=== PATIENT | female | born 1970 | race Caucasian/White ===

== ENCOUNTER 2021-12-18 11:15 | Outpatient (CLI) | payer BC, OTHER, SELFPAY | END 2021-12-18 11:16 | disposition home or self-care (01) | LOC: LONREF 12-21 11:08 | PROVIDERS: PCP Family Medicine; Visit Provider Nurse Practitioner Family | DX: R30.0 Dysuria (principal); N89.8 Other specified noninflammatory disorders of vagina | CPT/HCPCS: 87086; 87186 ==

== ENCOUNTER 2022-02-08 00:44 | Emergency (ER) | payer BC, OTHER, SELFPAY ==
[2022-02-08 00:59] VITALS: BP 181/101; PULSE 108; RESP 18; TEMP 36.1; O2SAT 96
[2022-02-08 01:25] VITALS: O2SAT 96
--- NOTE | 2022-02-08 01:46 | ED_ITS ---
HPI - Chest Pain General Chief Complaint: Chest Pain Stated Complaint: Chest Pain Time Seen by Provider: 02/08/22 00:49 Source: patient and family Mode of arrival: ambulatory Limitations: no limitations History of Present Illness HPI narrative: 51-year-old female with no prior cardiac history presents to the emergency department after her Apple watch alerted her that she could possibly be in AFib. 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 She has been throwing frequent PVCs in she had 2 episodes each lasting no more than a couple of minutes but were accompanied by a dull 3/10 achy chest pain did not radiate. She has had a rate around 100-110 during these episodes and does feel a little bit of anxiety that was not be initiating symptom. Her symptoms started after finishing work. She admits that she missed her medications for several days including her antihypertensives and her anticoagulants. Is notable history of factor 5 Leiden disorder. She admits that she often does not take her Eliquis twice daily as she gets increased joint aches when she does so. She has not explored taking prophylactic dosing rather than therapeutic dosing to see if this is more tolerable. Patient has a notable history of a prior pulmonary embolism, had echo in appropriate workup at that time. She states that within the last few months, she has also had a stress test or workup some chest pain. Review of the records shows that this was actually almost 2 years ago but is in fact normal. Recent Holter monitoring. Does have a notable history of AFib in her mother but only when patient was very anemic. There is no family history of early coronary artery disease but there are multiple risk factors in the family as well. Patient also has a history of diabetes, controlled on metformin, obstructive sleep apnea and hypertension, factor 5 Leiden multiple risk factors for coronary artery disease. She is not currently experiencing any chest pain, the achy pain that she did experience was approximately 45 minutes prior to arrival. She did have a slight sensation of lightheadedness upon arrival but she attributes that to her anxiety and has fully resolved. No recent illness, fevers, cough or congestion. She has some chronic swelling in her legs but does wear compression stockings. Denies any specific new swelling, tenderness in her calves. Complains of arthralgias when she is therapeutic on her blood thinners. Past medical history notable for multiple risk factors for coronary artery disease as stated above. Home medications losartan, Eliquis, amlodipine, metformin, omeprazole which is new and Trulicity. Socially she is a nonsmoker, no substance ingestion. Family history with risk factors for heart disease but no premature coronary artery disease as stated above. R was notable for some mild anxiety and the chest symptoms with arrhythmia as stated above, otherwise denies times 12 systems. Related Data Home Medications Medication Instructions Recorded Confirmed apixaban 5 mg tablet (Eliquis) 5 mg PO BID 10/31/21 cholecalciferol (vitamin D3) 1,250 1,250 mcg PO QWEEK 10/31/21 mcg (50,000 unit) capsule dulaglutide 0.75 mg/0.5 mL 0.75 mg subcut QWEEK 10/31/21 subcutaneous pen injector (Trulicity) fluoxetine 20 mg tablet 20 mg PO QDAY 10/31/21 hydrochlorothiazide 12.5 mg tablet 12.5 mg PO QDAY 10/31/21 hydroxyzine HCl 25 mg tablet 25 mg PO .HS PRN 10/31/21 nystatin 100,000 unit/gram topical 1 applic topical TID 10/31/21 powder valsartan 160 mg tablet 160 mg PO QDAY 10/31/21 Previous Rx's Medication Instructions Recorded valsartan 160 mg tablet 160 mg PO QDAY #90 tabs 10/31/21 metformin 500 mg tablet,extended 1,000 mg PO QDAY #180 tabs 11/06/21 release 24hr omeprazole 40 mg capsule,delayed 40 mg PO QDAY #90 caps 12/13/21 release fluconazole 150 mg tablet 150 mg PO Q3D 2 doses #2 tabs 12/18/21 (Diflucan) phenazopyridine 100 mg tablet 100 mg PO TID PRN pain 6 doses #6 12/18/21 (Pyridium) tabs amlodipine 2.5 mg tablet 2.5 mg PO QDAY #90 tabs 01/02/22 Allergies Allergy/AdvReac Type Severity Reaction Status Date / Time hydrocodone Allergy Intermediate Vomiting Verified 10/25/21 12:02 rivaroxaban Allergy Mild Joint Verified 10/25/21 12:02 aches and pain prochlorperazine AdvReac Severe Anger/altered Verified 10/25/21 12:02 mentation hydrochlorothiazide AdvReac Mild Ill feeling Verified 10/25/21 12:02 [facility] Medical History (Updated 02/08/22 @ 02:21 by Erlinda Lehman MD) Epistaxis History of deep venous thrombosis (DVT) of distal vein of left lower extremity History of pulmonary embolism Surgical History (Updated 10/25/21 @ 12:04 by Ana Lopez) History of dilation and curettage History of laser assisted in situ keratomileusis (05/06/12) Family History (Updated 10/25/21 @ 12:04 by Ana Lopez) Other Colon cancer Social History Smoking Status: Never smoker Second hand tobacco smoke exposure: No How often do you have a drink containing alcohol: never How often do you have six or more drinks on one occasion: Never AUDIT-C Alcohol total score: 0 Non-prescribed substance use: denies use Exam Const Vital Signs, click to edit/add: Vital Signs - 24 hr 02/08/22 00:59 02/08/22 01:25 02/08/22 02:00 Temperature 97.0 F L Pulse Rate [Right Pulse Oximeter] 108 H 92 Respiratory Rate 18 18 Blood Pressure [Left Upper Arm] 181/101 H 170/97 H Pulse Oximetry 96 96 96 Oxygen Delivery Method Room Air Room Air Room Air Documenting provider has reviewed patient's vital signs: yes Common normals: no apparent distress General appearance: cooperative and well kempt Other: Good historian, good insight. [facility] Common normals: normocephalic Head and scalp: normocephalic Mouth: oral and palatal mucosa normal Throat: posterior oropharynx normal Eye Common normals: PERRL and conjunctivae normal Conjunctiva: conjunctiva(e) normal Pupil: PERRL Neck & C-Spine Common normals: full ROM and no lymphadenopathy Resp Common normals: normal respiratory effort and clear to auscultation bilaterally Effort & inspection: able to speak in complete sentences Auscultation: clear to auscultation bilaterally Cardio Common normals: regular rate, regular rhythm, S1 normal heart sound, S2 normal heart sound, no murmurs and peripheral pulses 2+ throughout Rate: regular rate Rhythm: regular rhythm Heart sounds: S1 normal and S2 normal Peripheral pulses: pulses 2+ throughout Other: Rate around 100 at my time of auscultation. GI Common normals: Normal to inspection, nondistended, normoactive bowel sounds present, soft to palpation, no hepatosplenomegaly and no masses Palpation: soft and no hepatosplenomegaly Extremity Other: Trace bilateral dependent appearing edema. The left side does have some mild chronic venous stasis changes but no redness, swelling or warmth. Neuro Gait (neuro): normal gait Motor exam: strength 5/5 throughout, no tremor noted and no movement abnormalities noted Psych Appearance: well kempt Attitude: engaged Activity/motor behavior: appropriate eye contact Mood and affect: euthymic mood Insight: insight good Judgement: judgment good Skin Common normals: no rashes or lesions noted General skin exam: no rashes or lesions noted Course Vital Signs Vital signs: Initial Vital Signs Temperature 97.0 F L 02/08/22 00:59 Temperature Source Temporal Artery Scan 02/08/22 00:59 Pulse Rate 108 H 02/08/22 00:59 Pulse Rhythm 02/08/22 00:59 Respiratory Rate 18 02/08/22 00:59 Blood Pressure 181/101 H 02/08/22 00:59 Blood Pressure Mean 127 02/08/22 00:59 Blood Pressure Position Semi-Fowlers 02/08/22 00:59 Pulse Oximetry 96 02/08/22 00:59 Oxygen Delivery Method 02/08/22 00:59 Vital Signs Temperature 97.0 F L 02/08/22 00:59 Pulse Rate 108 H 02/08/22 00:59 Respiratory Rate 18 02/08/22 00:59 Blood Pressure 181/101 H 02/08/22 00:59 Pulse Oximetry 96 02/08/22 00:59 Oxygen Delivery Method 02/08/22 00:59 Temperature 97.0 F L 02/08/22 00:59 Pulse Rate 92 02/08/22 02:00 Respiratory Rate 18 02/08/22 02:00 Blood Pressure 170/97 H 02/08/22 02:00 Pulse Oximetry 96 02/08/22 02:00 Oxygen Delivery Method 02/08/22 02:00 MDM - Chest Pain MDM Narrative Medical decision making narrative: Patient has multiple risk factors for coronary artery disease and has been subtherapeutic on her blood thinners with history of coagulopathy. She is presenting tachycardic with PVCs, concern for underlying coronary disease or pulmonary embolism. Recommend D-dimer, EKG, lab studies to look for underlying causes and troponin. Somewhat reassuring that her pain has resolved. If D- dimer is elevated, I would strongly recommend a CT scan of the chest. Patient will be placed on a phototypesetting equipment monitor. I did confirm that she did go ahead and take her missed doses of her antihypertensives just prior to coming to the hospital, therefore will not dose these. Awaiting results of clot workup studies to determine anticoagulation. 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 A review of the rhythm strips from her phone taken by her watch into see runs of bigeminy with PVCs but I do not detect atrial fibrillation as a.m. consistently seeing P-waves on the rhythm strips. Update: Patient has remained asymptomatic during her 2 hour stay in the emergency department. No return of symptoms, remains in sinus rhythm with rare PVCs. No return of chest pain. Labs reviewed. Normal. Plan of care discussed. Patient is comfortable not doing serial monitoring and additional lab work. Understands need for better compliance with her medications and will follow up with her primary care provider to discuss Holter monitor if she has persistent symptoms. Medical Records Data Attestation: I reviewed the patient's medical records. Lab Data Attestation: I reviewed the patient's lab results. Labs: Lab Results 02/08/22 02/08/22 02/08/22 Range/Units 01:24 01:38 01:38 WBC 10.22 (4.50-11.00) K/uL RBC 5.45 H (4.00-5.20) m/uL Hgb 13.5 (12.0-16.0) gm/dL Hct 43.3 (33.0-51.0) % MCV 79 L (80-100) fL MCH 25 L (26-34) pg MCHC 31 L (32-36) gm/dL RDW Coeff of Katrina 14.6 (11.5-15.5) % Plt Count 302 (140-440) K/uL Neut % (Auto) 62.8 (42.0-72.0) % Lymph % (Auto) 27.8 (20-44) % Worth % (Auto) 5.7 (0.0-11.0) % Eos % (Auto) 2.6 (0.0-7.0) % Baso % (Auto) 0.3 (0.0-3.0) % Neut # (Auto) 6.42 (1.7-7.0) K/uL Lymph # (Auto) 2.84 (0.90-2.90) K/uL Worth # (Auto) 0.60 (0.00-0.90) K/UL Eos # (Auto) 0.27 (0.00-0.50) K/uL Baso # (Auto) 0.03 (0.00-0.30) K/uL Abs Immat Gran (auto) 0.08 (0.00-0.30) K/uL D-Dimer Quant (PE/DVT) 0.56 H (0.00-0.50) ug/ml Sodium (135-149) mmol/L Potassium (3.6-5.1) mmol/L Chloride (96-114) mmol/L Carbon Dioxide (20-32) mmol/L BUN (7-30) mg/dL Creatinine (0.5-1.5) mg/dL Estimated GFR ml/min Glucose (60-115) mg/dL Calcium (8.4-10.6) mg/dL Troponin I (0.01-0.04) ng/mL NT-Pro-B Natriuret Pep (0-125) PG/mL POC Troponin I 0.01 (0.01-0.04) ng/ml 02/08/22 Range/Units 01:38 WBC (4.50-11.00) K/uL RBC (4.00-5.20) m/uL Hgb (12.0-16.0) gm/dL Hct (33.0-51.0) % MCV (80-100) fL MCH (26-34) pg MCHC (32-36) gm/dL RDW Coeff of Katrina (11.5-15.5) % Plt Count (140-440) K/uL Neut % (Auto) (42.0-72.0) % Lymph % (Auto) (20-44) % Worth % (Auto) (0.0-11.0) % Eos % (Auto) (0.0-7.0) % Baso % (Auto) (0.0-3.0) % Neut # (Auto) (1.7-7.0) K/uL Lymph # (Auto) (0.90-2.90) K/uL Worth # (Auto) (0.00-0.90) K/UL Eos # (Auto) (0.00-0.50) K/uL Baso # (Auto) (0.00-0.30) K/uL Abs Immat Gran (auto) (0.00-0.30) K/uL D-Dimer Quant (PE/DVT) (0.00-0.50) ug/ml Sodium 136 (135-149) mmol/L Potassium 4.0 (3.6-5.1) mmol/L Chloride 101 (96-114) mmol/L Carbon Dioxide 26 (20-32) mmol/L BUN 12 (7-30) mg/dL Creatinine 0.8 (0.5-1.5) mg/dL Estimated GFR 90 ml/min Glucose 226 H (60-115) mg/dL Calcium 9.4 (8.4-10.6) mg/dL Troponin I < 0.01 L (0.01-0.04) ng/mL NT-Pro-B Natriuret Pep 83 (0-125) PG/mL POC Troponin I (0.01-0.04) ng/ml ECG Data Attestation: I personally reviewed and interpreted this ECG as follows: Prior ECG tracings: available for review Interpretation: Normal sinus rhythm with a few PVCs. Left atrial enlargement but otherwise normal axis. Normal ST segments, no T-wave inversion, good R-wave progression overall. Discharge Plan Discharge Clinical Impression: Bigeminal rhythm Patient Disposition: Home w/ Parent or Adult Condition: Improved Instructions: Atrial Tachycardia (ED) Additional Instructions: I suspect that your arrhythmia was caused by being off of your medications. Thankfully, there are no signs of blood clot, heart attack or other serious abnormality. That would recommend that you restart your blood thinners and antihypertensives as prescribed. Consider talking to your doctor about whether or not a prophylactic rather than a therapeutic dose of your blood thinners is safe for you. I do not know enough about your testing and risk factors to make this choice for you. Your much less likely to have the microhemorrhages that we discussed in the joints on the lower dose of Xarelto or similar medications. Unfortunately, they are common. For your legs, consider more aggressive compression stockings like the friends that we discussed. I would recommend that you make a followup appointment with her primary care provider to have a Holter monitor placed so that we can look more closely for arrhythmias. It is important that we know if this is happening more often or not. If the rhythm returns and is over 120 and your feeling symptomatic, please come back to the emergency department. The to wear your Apple watch to monitor for these as best you are able. Activity Level: No Restrictions Discharge Diet: Diabetic Prescriptions: No Action phenazopyridine [Pyridium] 100 mg tablet 100 mg PO TID PRN (Reason: pain) Qty: 6 0RF fluconazole [Diflucan] 150 mg tablet 150 mg PO Q3D Qty: 2 0RF hydroxyzine HCl 25 mg tablet 25 mg PO .HS PRN valsartan 160 mg tablet 160 mg PO QDAY Trulicity 0.75 mg/0.5 mL pen injector 0.75 mg subcut QWEEK hydrochlorothiazide 12.5 mg tablet 12.5 mg PO QDAY nystatin 100,000 unit/gram powder 1 applic topical TID fluoxetine 20 mg tablet 20 mg PO QDAY Eliquis 5 mg tablet 5 mg PO BID cholecalciferol (vitamin D3) 1,250 mcg (50,000 unit) capsule 1,250 mcg PO QWEEK valsartan 160 mg tablet 160 mg PO QDAY Qty: 90 3RF metformin 500 mg tablet extended release 24hr 1,000 mg PO QDAY Qty: 180 3RF omeprazole 40 mg capsule,delayed release(DR/EC) 40 mg PO QDAY Qty: 90 1RF amlodipine 2.5 mg tablet 2.5 mg PO QDAY Qty: 90 3RF Follow Up/Referrals: Shaun Barrett MD [Primary Care Provider] - Stand Alone Forms: [employer] Info Instructions
[2022-02-08 01:47] LABS: Basophils Absolute Auto 0.03 K/uL (0.00-0.30); Basophils Percent Auto 0.3 % (0.0-3.0); Eosinophils Absolute Auto 0.27 K/uL (0.00-0.50); Eosinophils Percent Auto 2.6 % (0.0-7.0); Hematocrit 43.3 % (33.0-51.0); Hemoglobin* 13.5 gm/dL (12.0-16.0); Immature Granulocytes Abs Auto 0.08 K/uL (0.00-0.30); Lymphocytes Absolute Auto 2.84 K/uL (0.90-2.90); Lymphocytes Percent Auto 27.8 % (20-44); Mean Corpuscular HGB Conc 31 gm/dL (32-36); Mean Corpuscular Hemoglobin 25 pg (26-34); Mean Corpuscular Volume 79 fL (80-100); Monocytes Percent Auto 5.7 % (0.0-11.0); Neutrophils Absolute Auto 6.42 K/uL (1.7-7.0); Neutrophils Percent Auto 62.8 % (42.0-72.0); Platelet Count* 302 K/uL (140-440); RDW Coefficient of Variation % 14.6 % (11.5-15.5); Red Blood Count 5.45 m/uL (4.00-5.20); White Blood Count* 10.22 K/uL (4.50-11.00)
[2022-02-08 01:52] LABS: Slide Review Reflex No
[2022-02-08 02:00] VITALS: BP 170/97; PULSE 92; RESP 18; O2SAT 96
[2022-02-08 02:00] LABS: Chloride* 101 mmol/L (96-114); Sodium* 136 mmol/L (135-149)
[2022-02-08 02:02] LABS: Troponin, Point-of-Care* 0.01 ng/ml (0.01-0.04)
[2022-02-08 02:04] LABS: Blood Urea Nitrogen* 12 mg/dL (7-30); Calcium* 9.4 mg/dL (8.4-10.6); Carbon Dioxide* 26 mmol/L (20-32); Creatinine* 0.8 mg/dL (0.5-1.5); Estimated Glomerular Filt Rate 90 ml/min; Glucose* 226 mg/dL (60-115)
[2022-02-08 02:05] LABS: D Dimer Quantitative* 0.56 ug/ml (0.00-0.50)
--- OUTSIDE RECORDS SUMMARY | 2022-02-08 02:06 | XMS_ITS | Clinical Summary ---
:1970 Author Organization [employer] [facility] [place] [address] Care Team Providers Name Role Phone Shaun Barrett MD Primary Care Provider Allergies No known active allergies Medications Medication Sig Dispensed Refills Start Date End Date Status levonorgestrel Inject 1 Device 0 Active intrauterine device intrauterine one (MIRENA) 20 mcg/24 hour time. (5 years) IUD losartan (COZAAR) 50 mg Take 1 tablet by 0 6 Active tablet mouth once daily. cyanocobalamin (VITAMIN Take 1 tablet by 0 6 Active B-12) 1,000 mcg tablet mouth once daily. sertraline (ZOLOFT) 25 Take 1 tablet by 0 05/29/2016 Active mg tablet mouth once daily. amLODIPine (NORVASC) 2.5 0 08/13/2021 Active mg tablet Eliquis 5 mg tablet 0 04/02/2021 Active FLUoxetine 20 mg tablet Take 20 mg by 0 06/12/2021 Active mouth once daily. hydroCHLOROthiazide 12.5 0 08/16/2021 Active mg capsule metFORMIN (GLUCOPHAGE Take 1,000 mg by 0 01/01/2021 Active XR) 500 mg mouth once daily. Extended-Release tablet omeprazole (PRILOSEC) 40 Take 40 mg by 0 06/12/2021 Active mg Delayed-Release mouth once daily. 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 06/25/2007 Congenital insufficiency of aortic valve 03/26/2007 Overview: Bicuspid Aortic Valve Recheck Echo 9 Other pulmonary embolism and infarction 03/16/2007 Lumbago 03/13/2007 Dysthymic disorder 03/10/2007 Overview: Depression Immunizations Name Administration Dates Next Due Pneumococcal Poly,23-Valent (Pneumovax) 02/13/2008 Family History Medical History Relation Name Comments Diabetes Father Hypertension Father Cancer Mother uterine Cancer-breast Mother may have had gaby ast but unsure where CA started do to al so having uterin Hypertension Mother Cancer-colon No Family History Cancer-ovarian No Family History Cancer-prostate No Family History Relation Name Status Comments Father Mother Social History Tobacco Use Types Packs/Day Years Used Date Former Smoker 0 Smokeless Tobacco: Former User Alcohol Use Standard Drinks/Week Comments No 1.7 (1 standard drink = 0.6 oz pure alco hol) Sex Assigned at Date Recorded Not on file Obstetrics History Last Filed Vital Signs Vital Sign Reading Time Taken Comments Blood Pressure 149/75 08/18/2021 9:36 PM CDT Pulse 85 08/18/2021 9:36 PM CDT Temperature 36.8 ??C (98.2 ??F) 08/18/2021 7:32 PM CDT Respiratory Rate 20 08/18/2021 7:32 PM CDT Oxygen Saturation 97% 08/18/2021 9:36 PM CDT Inhaled Oxygen Concentration - - Weight 183.7 kg (405 lb) 08/18/2021 7:32 PM CDT Height 177.8 cm (5' 10) 08/18/2021 7:32 PM CDT Body Mass Index 58.11 08/18/2021 7:32 PM CDT Plan of Treatment Health Maintenance Due Date Last Done Comments Tdap 12/24/1982 Depression screening for age 12+ 1983 BMI (ht and wt on same day) for age 0912/24/1989 18+ Hepatitis C screening for age 18-79 12/24/1989 Tetanus booster 1991 Pap test for age 21-65 05/17/2014 05/17/2011, 05/17/2011, 09/21/2004 Colonoscopy through age 75 12/24/2016 Lipids for age 45-75 12/24/2016 09/21/2008, 03/26/2007 Mammogram for age 45-75 12/24/2016 06/15/2013 COVID-19 vaccine series (3 - Booster 08/15/2020 06/20/2020, 05/27/2020 for Pfizer series) Influenza for age 50-64 12/24/2021 Zoster (shingles) series for age 50+ 12/24/2021 (1 of 2) Results Not on filefrom Last 3 Months Insurance Payer Benefit Plan / Subscriber ID Effective Dates Phone Addre ss Type Group PREFERRED ONE PREFERRED ONE [id number] 2015-Prese [address] [place] [address] [employer] BL[employer] OF [id number] 2019-Prese [address] [place] [address] BLUE [employer]OSS BLUE [employer]OSS OF [id number] 2020-Prese [address] [place] [address] [facility] UMR [id number] 2019-Presen [address] [place] [address] Sera Walker Personal/Family Self 1970 [id number] [facility] [address] [place] [address] Advance Directives Latest Code Status on File Code Status Date Activated Date Inactivated Comments Full Code 09/19/2008 8:15 PM 09/21/2008 7:41 PM 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
[2022-02-08 02:12] LABS: NT Pro B Type NatriureticPept* 83 PG/mL (0-125)
[2022-02-08 02:16] LABS: Troponin I* < 0.01 ng/mL (0.01-0.04)
== END 2022-02-08 02:51 | disposition home or self-care (01) ==
PROVIDERS: Emergency Provider Family Medicine; PCP Family Medicine
DX: R00.8 Other abnormalities of heart beat (principal)
CPT/HCPCS: 36415; 80048; 83880; 84484; 85025; 85379; 93005; 99282; 99284

== ENCOUNTER 2022-02-09 06:48 | Emergency (ER) | payer BC, OTHER, SELFPAY ==
[2022-02-09 07:01] VITALS: BP 162/84; PULSE 86; RESP 16; O2SAT 96; BMI 54.5
--- NOTE | 2022-02-09 08:12 | ED_ITS ---
HPI - Arrhythmia/Palpitations General Date Seen: 02/09/22 <Lambert Gandhi MD - Last Filed: 02/10/22 08:22> Chief Complaint: Arrhythmia/Palpitations <Lambert Gandhi MD - Last Filed: 02/10/22 08:22> Stated Complaint: Irregular heart beat and dizzy <Lambert Gandhi MD - Last Filed: 02/10/22 08:22> Time Seen by Provider: 02/09/22 06:55 <Lambert Gandhi MD - Last Filed: 02/10/22 08:22> Source: patient <Lambert Gandhi MD - Last Filed: 02/10/22 08:22> Mode of arrival: ambulatory <Lambert Gandhi MD - Last Filed: 02/10/22 08:22> Limitations: no limitations <Lambert Gandhi MD - Last Filed: 02/10/22 08:22> History of Present Illness HPI narrative: 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 this morning of almost passing out, incontinence of urine, and feeling her heart flipping beats. She was seen the night before here, thought to be possibly in atrial fibrillation but was clearly in bigeminy at times. She also has some mild left-sided chest discomfort which she is not sure whether is related to this at all, as this was from before. She is here with her significant other, who reminds her the chest pain at least could be just her anxiety and her hypochondria. Sera does have a history of factor 5 Leiden previous DVT she takes Eliquis although she does not take it regularly, missing doses often. She also has a history of hypertension, if struggled with getting her medications under control. No shortness of breath, no fevers or chills, she is not taking cold medicines and she has not drank alcohol in the last 72 hours. There is a history in the past of atrial fibrillation <Lambert Gandhi MD - Last Filed: 02/10/22 08:22> MD complaint: skipped beats and palpitations <Lambert Gandhi MD - Last Filed: 02/10/22 08:22> Context: occurred during rest <Lambert Gandhi MD - Last Filed: 02/10/22 08:22> Arrhythmia history: atrial fibrillation and on anti-coagulants <Lambert Gandhi MD - Last Filed: 02/10/22 08:22> Related Data Home Medications: Home Medications Medication Instructions Recorded Confirmed apixaban 5 mg tablet (Eliquis) 5 mg PO BID 10/31/21 02/09/22 cholecalciferol (vitamin D3) 1,250 1,250 mcg PO QWEEK 10/31/21 mcg (50,000 unit) capsule dulaglutide 0.75 mg/0.5 mL 0.75 mg subcut QWEEK 10/31/21 02/09/22 subcutaneous pen injector (Trulicity) fluoxetine 20 mg tablet 20 mg PO QDAY 10/31/21 02/09/22 hydrochlorothiazide 12.5 mg tablet 12.5 mg PO QDAY 10/31/21 hydroxyzine HCl 25 mg tablet 25 mg PO .HS PRN 10/31/21 nystatin 100,000 unit/gram topical 1 applic topical TID 10/31/21 powder valsartan 160 mg tablet 160 mg PO QDAY 10/31/21 02/09/22 Previous Rx's Medication Instructions Recorded valsartan 160 mg tablet 160 mg PO QDAY #90 tabs 10/31/21 metformin 500 mg tablet,extended 1,000 mg PO QDAY #180 tabs 11/06/21 release 24hr omeprazole 40 mg capsule,delayed 40 mg PO QDAY #90 caps 12/13/21 release fluconazole 150 mg tablet 150 mg PO Q3D 2 doses #2 tabs 12/18/21 (Diflucan) phenazopyridine 100 mg tablet 100 mg PO TID PRN pain 6 doses #6 12/18/21 (Pyridium) tabs amlodipine 2.5 mg tablet 2.5 mg PO QDAY #90 tabs 01/02/22 <Lambert Gandhi MD - Last Filed: 02/10/22 08:22> Allergies/Adverse Reactions: Allergies Allergy/AdvReac Type Severity Reaction Status Date / Time hydrocodone Allergy Intermediate Vomiting Verified 10/25/21 12:02 rivaroxaban Allergy Mild Joint Verified 10/25/21 12:02 aches and pain prochlorperazine AdvReac Severe Anger/altered Verified 10/25/21 12:02 mentation hydrochlorothiazide AdvReac Mild Ill feeling Verified 10/25/21 12:02 <Lambert Gandhi MD - Last Filed: 02/10/22 08:22> Review of Systems Status of ROS: Reports: 10 or more systems reviewed and unremarkable except as noted in History and below <Lambert Gandhi MD - Last Filed: 02/10/22 08:22> [facility] Medical History: Medical History Epistaxis History of deep venous thrombosis (DVT) of distal vein of left lower extremity History of pulmonary embolism <Lambert Gandhi MD - Last Filed: 02/10/22 08:22> Surgical History: Surgical History History of dilation and curettage History of laser assisted in situ keratomileusis (05/06/12) <Lambert Gandhi MD - Last Filed: 02/10/22 08:22> Family History: Family History Other Colon cancer <Lambert Gandhi MD - Last Filed: 02/10/22 08:22> Social History: Social History Smoking Status: Never smoker Second hand tobacco smoke exposure: No How often do you have a drink containing alcohol: never How often do you have six or more drinks on one occasion: Never AUDIT-C Alcohol total score: 0 Non-prescribed substance use: denies use <Lambert Gandhi MD - Last Filed: 02/10/22 08:22> Exam Narrative: Exam Narrative: Patient is seen in room 8, she is in no apparent distress, conversing normally with me, BMI is elevated, pupils are equal round reactive to light there is no scleral icterus or redness, TMs bilaterally are normal, oropharynx normal, I am unable to see her JVP do the size of her neck, her chest is clear bilaterally with no wheezing crackles noted her heart sounds are normal, abdomen is soft and obese, no tenderness to palpation, her legs have edema bilaterally but otherwise normal. <Lambert Gandhi MD - Last Filed: 02/10/22 08:22> Const: Vital Signs, click to edit/add: Vital Signs - 24 hr 02/09/22 08:48 02/09/22 11:45 Pulse Rate [Left P ulse Oximeter] 76 84 Respiratory Rate 16 18 Blood Pressure [Le ft Upper Arm] 153/92 H 152/87 H Pulse Oximetry 96 96 Oxygen Delivery Me thod Room Air Room Air <Lambert Gandhi MD - Last Filed: 02/10/22 08:22> Vital Signs, click to edit/add: Vital Signs - 24 hr 02/09/22 08:48 02/09/22 11:45 Pulse Rate [Left P ulse Oximeter] 76 84 Respiratory Rate 16 18 Blood Pressure [Le ft Upper Arm] 153/92 H 152/87 H Pulse Oximetry 96 96 Oxygen Delivery Me thod Room Air Room Air <Shaun Coelho MD - Last Filed: 02/09/22 11:11> Documenting provider has reviewed patient's vital signs: yes <Lambert Gandhi MD - Last Filed: 02/10/22 08:22> Course Course Hospital Course: Patient appears to be in no apparent distress currently, I think it would be reasonable at this point, 2 repeat her troponin, D-dimer, and go forward, she may require a Holter monitor, oncoming emergency physician will review the labs, and course. <Lambert Gandhi MD - Last Filed: 02/10/22 08:22> Vital Signs Vital signs: Initial Vital Signs Temperature Source Temporal Artery Scan 02/09/22 07:01 Pulse Rate 86 02/09/22 07:01 Respiratory Rate 16 02/09/22 07:01 Blood Pressure 162/84 H 02/09/22 07:01 Blood Pressure Mean 110 02/09/22 07:01 Blood Pressure Position Sitting 02/09/22 07:01 Pulse Oximetry 96 02/09/22 07:01 Oxygen Delivery Method 02/09/22 07:01 Vital Signs Pulse Rate 86 02/09/22 07:01 Respiratory Rate 16 02/09/22 07:01 Blood Pressure 162/84 H 02/09/22 07:01 Pulse Oximetry 96 02/09/22 07:01 Oxygen Delivery Method 02/09/22 07:01 Pulse Rate 84 02/09/22 11:45 Respiratory Rate 18 02/09/22 11:45 Blood Pressure 152/87 H 02/09/22 11:45 Pulse Oximetry 96 02/09/22 11:45 Oxygen Delivery Method 02/09/22 11:45 <Lambert Gandhi MD - Last Filed: 02/10/22 08:22> Initial Vital Signs Temperature Source Temporal Artery Scan 02/09/22 07:01 Pulse Rate 86 02/09/22 07:01 Respiratory Rate 16 02/09/22 07:01 Blood Pressure 162/84 H 02/09/22 07:01 Blood Pressure Mean 110 02/09/22 07:01 Blood Pressure Position Sitting 02/09/22 07:01 Pulse Oximetry 96 02/09/22 07:01 Oxygen Delivery Method 02/09/22 07:01 Vital Signs Pulse Rate 86 02/09/22 07:01 Respiratory Rate 16 02/09/22 07:01 Blood Pressure 162/84 H 02/09/22 07:01 Pulse Oximetry 96 02/09/22 07:01 Oxygen Delivery Method 02/09/22 07:01 Pulse Rate 84 02/09/22 11:45 Respiratory Rate 18 02/09/22 11:45 Blood Pressure 152/87 H 02/09/22 11:45 Pulse Oximetry 96 02/09/22 11:45 Oxygen Delivery Method 02/09/22 11:45 <Shaun Coelho MD - Last Filed: 02/09/22 11:11> MDM - Arrhythmia/Palpitations MDM Narrative Medical decision making narrative: Differential diagnosis includes but is not limited to psychosocial stress, thyroid abnormalities, CHF, SVT, atrial fibrillation, ventricular tachycardia and ventricular fibrillation. This includes the life-threatening complications of heart failure, V-tach, and VFib <Lambert Gandhi MD - Last Filed: 02/10/22 08:22> Differential diagnosis includes but is not limited to psychosocial stress, thyroid abnormalities, CHF, SVT, atrial fibrillation, ventricular tachycardia and ventricular fibrillation. This includes the life-threatening complications of heart failure, V-tach, and VFib Lab and imaging results for this patient returned with reassuring findings. She does have frequent PACs on heart monitoring. She is okay to return home and has a follow-up appointment with her primary physician in a few days. A Holter monitor is ordered to be worn for 48 hours. <Shaun Coelho MD - Last Filed: 02/09/22 11:11> Medical Records Attestation: I reviewed the patient's medical records. <Lambert Gandhi MD - Last Filed: 02/10/22 08:22> Lab Data Attestation: I reviewed the patient's lab results. <Lambert Gandhi MD - Last Filed: 02/10/22 08:22> Labs: Lab Results 02/09/22 02/09/22 02/09/22 Range/Units 09:30 09:30 09:30 WBC 7.95 (4.50-11.00) K/uL RBC 5.42 H (4.00-5.20) m/uL Hgb 13.2 (12.0-16.0) gm/dL Hct 43.6 (33.0-51.0) % MCV 80 (80-100) fL MCH 24 L (26-34) pg MCHC 30 L (32-36) gm/dL RDW Coeff of Katrina 14.7 (11.5-15.5) % Plt Count 296 (140-440) K/uL Neut % (Auto) 62.3 (42.0-72.0) % Lymph % (Auto) 27.5 (20-44) % [place] % (Auto) 6.2 (0.0-11.0) % Eos % (Auto) 3.1 (0.0-7.0) % Baso % (Auto) 0.4 (0.0-3.0) % Neut # (Auto) 4.95 (1.7-7.0) K/uL Lymph # (Auto) 2.19 (0.90-2.90) K/uL [place] # (Auto) 0.50 (0.00-0.90) K/UL Eos # (Auto) 0.25 (0.00-0.50) K/uL Baso # (Auto) 0.03 (0.00-0.30) K/uL Abs Immat Gran (auto) 0.04 (0.00-0.30) K/uL D-Dimer Quant (PE/DVT) 0.44 (0.00-0.50) ug/ml Sodium 138 (135-149) mmol/L Potassium 4.5 (3.6-5.1) mmol/L Chloride 102 (96-114) mmol/L Carbon Dioxide 27 (20-32) mmol/L BUN 14 (7-30) mg/dL Creatinine 0.6 (0.5-1.5) mg/dL Estimated Creat Clear 121.30 Estimated GFR 109 ml/min Glucose 152 H (60-115) mg/dL Calcium 9.1 (8.4-10.6) mg/dL NT-Pro-B Natriuret Pep (0-125) PG/mL TSH (0.270-4.20) uIU/mL POC Troponin I (0.01-0.04) ng/ml 02/09/22 02/09/22 02/09/22 Range/Units 09:30 09:30 09:30 WBC (4.50-11.00) K/uL RBC (4.00-5.20) m/uL Hgb (12.0-16.0) gm/dL Hct (33.0-51.0) % MCV (80-100) fL MCH (26-34) pg MCHC (32-36) gm/dL RDW Coeff of Katrina (11.5-15.5) % Plt Count (140-440) K/uL Neut % (Auto) (42.0-72.0) % Lymph % (Auto) (20-44) % [place] % (Auto) (0.0-11.0) % Eos % (Auto) (0.0-7.0) % Baso % (Auto) (0.0-3.0) % Neut # (Auto) (1.7-7.0) K/uL Lymph # (Auto) (0.90-2.90) K/uL [place] # (Auto) (0.00-0.90) K/UL Eos # (Auto) (0.00-0.50) K/uL Baso # (Auto) (0.00-0.30) K/uL Abs Immat Gran (auto) (0.00-0.30) K/uL D-Dimer Quant (PE/DVT) (0.00-0.50) ug/ml Sodium (135-149) mmol/L Potassium (3.6-5.1) mmol/L Chloride (96-114) mmol/L Carbon Dioxide (20-32) mmol/L BUN (7-30) mg/dL Creatinine (0.5-1.5) mg/dL Estimated Creat Clear Estimated GFR ml/min Glucose (60-115) mg/dL Calcium (8.4-10.6) mg/dL NT-Pro-B Natriuret Pep 80 (0-125) PG/mL TSH 2.660 (0.270-4.20) uIU/mL POC Troponin I 0.01 (0.01-0.04) ng/ml <Lambert Gandhi MD - Last Filed: 02/10/22 08:22> Lab Results 02/09/22 02/09/22 02/09/22 Range/Units 09:30 09:30 09:30 WBC 7.95 (4.50-11.00) K/uL RBC 5.42 H (4.00-5.20) m/uL Hgb 13.2 (12.0-16.0) gm/dL Hct 43.6 (33.0-51.0) % MCV 80 (80-100) fL MCH 24 L (26-34) pg MCHC 30 L (32-36) gm/dL RDW Coeff of Katrina 14.7 (11.5-15.5) % Plt Count 296 (140-440) K/uL Neut % (Auto) 62.3 (42.0-72.0) % Lymph % (Auto) 27.5 (20-44) % [place] % (Auto) 6.2 (0.0-11.0) % Eos % (Auto) 3.1 (0.0-7.0) % Baso % (Auto) 0.4 (0.0-3.0) % Neut # (Auto) 4.95 (1.7-7.0) K/uL Lymph # (Auto) 2.19 (0.90-2.90) K/uL [place] # (Auto) 0.50 (0.00-0.90) K/UL Eos # (Auto) 0.25 (0.00-0.50) K/uL Baso # (Auto) 0.03 (0.00-0.30) K/uL Abs Immat Gran (auto) 0.04 (0.00-0.30) K/uL D-Dimer Quant (PE/DVT) 0.44 (0.00-0.50) ug/ml Sodium 138 (135-149) mmol/L Potassium 4.5 (3.6-5.1) mmol/L Chloride 102 (96-114) mmol/L Carbon Dioxide 27 (20-32) mmol/L BUN 14 (7-30) mg/dL Creatinine 0.6 (0.5-1.5) mg/dL Estimated Creat Clear 121.30 Estimated GFR 109 ml/min Glucose 152 H (60-115) mg/dL Calcium 9.1 (8.4-10.6) mg/dL NT-Pro-B Natriuret Pep (0-125) PG/mL TSH (0.270-4.20) uIU/mL POC Troponin I (0.01-0.04) ng/ml 02/09/22 02/09/22 02/09/22 Range/Units 09:30 09:30 09:30 WBC (4.50-11.00) K/uL RBC (4.00-5.20) m/uL Hgb (12.0-16.0) gm/dL Hct (33.0-51.0) % MCV (80-100) fL MCH (26-34) pg MCHC (32-36) gm/dL RDW Coeff of Katrina (11.5-15.5) % Plt Count (140-440) K/uL Neut % (Auto) (42.0-72.0) % Lymph % (Auto) (20-44) % [place] % (Auto) (0.0-11.0) % Eos % (Auto) (0.0-7.0) % Baso % (Auto) (0.0-3.0) % Neut # (Auto) (1.7-7.0) K/uL Lymph # (Auto) (0.90-2.90) K/uL [place] # (Auto) (0.00-0.90) K/UL Eos # (Auto) (0.00-0.50) K/uL Baso # (Auto) (0.00-0.30) K/uL Abs Immat Gran (auto) (0.00-0.30) K/uL D-Dimer Quant (PE/DVT) (0.00-0.50) ug/ml Sodium (135-149) mmol/L Potassium (3.6-5.1) mmol/L Chloride (96-114) mmol/L Carbon Dioxide (20-32) mmol/L BUN (7-30) mg/dL Creatinine (0.5-1.5) mg/dL Estimated Creat Clear Estimated GFR ml/min Glucose (60-115) mg/dL Calcium (8.4-10.6) mg/dL NT-Pro-B Natriuret Pep 80 (0-125) PG/mL TSH 2.660 (0.270-4.20) uIU/mL POC Troponin I 0.01 (0.01-0.04) ng/ml <Shaun Coelho MD - Last Filed: 02/09/22 11:11> Imaging Data Chest x-ray: Radiologist's impression: Possible low-grade CHF without overt edema. Exam otherwise unremarkable. <Shaun Coelho MD - Last Filed: 02/09/22 11:11> ECG Data Attestation: I personally reviewed and interpreted this ECG as follows: <Lambert Gandhi MD - Last Filed: 02/10/22 08:22> ECG interpretation date: 02/09/22 <Lambert Gandhi MD - Last Filed: 02/10/22 08:22> ECG interpretation time: 08:37 <Lambert Gandhi MD - Last Filed: 02/10/22 08:22> Interpretation: EKG shows normal sinus rhythm, with occasional PVCs, ventricular rate is 87, QRS QT and AL intervals are normal. Assessment: Normal EKG with no ST waves does changes, occasional PVCs, <Lambert Gandhi MD - Last Filed: 02/10/22 08:22> Discharge Plan Discharge Clinical Impression: Palpitations, Frequent PVCs <Lambert Gandhi MD - Last Filed: 02/10/22 08:22> Patient Disposition: Home, Self-Care <Lambert Gandhi MD - Last Filed: 02/10/22 08:22> Condition: Stable <Lambert Gandhi MD - Last Filed: 02/10/22 08:22> Instructions: Heart Palpitations (ED) <Lambert Gandhi MD - Last Filed: 02/10/22 08:22> Additional Instructions: Follow-up with primary physician as scheduled. Wear Holter monitor. Return if recurrent or worsening symptoms happen. <Lambert Gandhi MD - Last Filed: 02/10/22 08:22> Prescriptions: No Action phenazopyridine [Pyridium] 100 mg tablet 100 mg PO TID PRN (Reason: pain) Qty: 6 0RF fluconazole [Diflucan] 150 mg tablet 150 mg PO Q3D Qty: 2 0RF hydroxyzine HCl 25 mg tablet 25 mg PO .HS PRN valsartan 160 mg tablet 160 mg PO QDAY Trulicity 0.75 mg/0.5 mL pen injector 0.75 mg subcut QWEEK hydrochlorothiazide 12.5 mg tablet 12.5 mg PO QDAY nystatin 100,000 unit/gram powder 1 applic topical TID fluoxetine 20 mg tablet 20 mg PO QDAY Eliquis 5 mg tablet 5 mg PO BID cholecalciferol (vitamin D3) 1,250 mcg (50,000 unit) capsule 1,250 mcg PO QWEEK valsartan 160 mg tablet 160 mg PO QDAY Qty: 90 3RF metformin 500 mg tablet extended release 24hr 1,000 mg PO QDAY Qty: 180 3RF omeprazole 40 mg capsule,delayed release(DR/EC) 40 mg PO QDAY Qty: 90 1RF amlodipine 2.5 mg tablet 2.5 mg PO QDAY Qty: 90 3RF <Lambert Gandhi MD - Last Filed: 02/10/22 08:22> Follow Up/Referrals: Shaun Barrett MD [Primary Care Provider] - <Lambert Gandhi MD - Last Filed: 02/10/22 08:22> Stand Alone Forms: MyHealth Info Instructions <Lambert Gandhi MD - Last Filed: 02/10/22 08:22>
--- NOTE | 2022-02-09 08:25 | CRLHL7_ITS ---
For Patients: As a result of the Century Cures Act, medical imaging exams and procedure reports are released immediately into your electronic medical record. You may view this report before your referring provider. If you have questions, please contact your health care provider. INDICATION: Chest pain. TECHNIQUE: Chest 2 views. COMPARISON: CT chest September 22, 2020. FINDINGS: Cardiovascular and mediastinum: Moderate cardiomegaly and mild central pulmonary vascular congestion. Lungs and pleural spaces: Lungs are clear. No sign of infiltrate or mass. No sign of pleural effusion. No pneumothorax. Bones and soft tissues: No significant findings. IMPRESSION: Possible low-grade CHF without overt edema. Exam otherwise unremarkable. Dictated by Matty Pate MD @ 02/09/2022 9:26:22 AM (Electronically Signed)
[2022-02-09 08:48] VITALS: BP 153/92; PULSE 76; RESP 16; O2SAT 96
--- OUTSIDE RECORDS SUMMARY | 2022-02-09 09:03 | XMS_ITS | Clinical Summary ---
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 06/25/2007 Congenital insufficiency [...] ss Type Group PREFERRED ONE PREFERRED ONE [id number] 2015-Prese [address] [place] [address] [employer] BL[employer] OF [id number] 2019-Prese [id number] [place] [address] [employer] BL[employer] OF [id number] 2020-Prese [address] [place] [address] [facility] [id number] 2019-Presen [address] [place] [address] Sera Walker Personal/Family Self 1970 [id number] [address] [place] [address] Advance Directives Latest Code Status on File Code Status Date Activated Date Inactivated Comments Full Code 09/19/2008 8:15 PM 09/21/2008 7:41 PM Care Teams Decision Support Analyst Relationship Specialty Start Date End Date Shaun Barrett MD PCP - General Family Practice 08/18/[address] [place] [id number]
[2022-02-09 09:46] LABS: Basophils Absolute Auto 0.03 K/uL (0.00-0.30); Basophils Percent Auto 0.4 % (0.0-3.0); Eosinophils Absolute Auto 0.25 K/uL (0.00-0.50); Eosinophils Percent Auto 3.1 % (0.0-7.0); Hematocrit 43.6 % (33.0-51.0); Hemoglobin* 13.2 gm/dL (12.0-16.0); Immature Granulocytes Abs Auto 0.04 K/uL (0.00-0.30); Lymphocytes Absolute Auto 2.19 K/uL (0.90-2.90); Lymphocytes Percent Auto 27.5 % (20-44); Mean Corpuscular HGB Conc 30 gm/dL (32-36); Mean Corpuscular Hemoglobin 24 pg (26-34); Mean Corpuscular Volume 80 fL (80-100); Monocytes Percent Auto 6.2 % (0.0-11.0); Neutrophils Absolute Auto 4.95 K/uL (1.7-7.0); Neutrophils Percent Auto 62.3 % (42.0-72.0); Platelet Count* 296 K/uL (140-440); RDW Coefficient of Variation % 14.7 % (11.5-15.5); Red Blood Count 5.42 m/uL (4.00-5.20); White Blood Count* 7.95 K/uL (4.50-11.00)
[2022-02-09 09:48] LABS: Slide Review Reflex No
[2022-02-09 09:50] LABS: Troponin, Point-of-Care* 0.01 ng/ml (0.01-0.04)
--- NOTE | 2022-02-09 09:59 | ED.NURSE ---
patient will feel the PVCs occasionally and had a bout of CP in the left side of the chest briefly, but resolves quickly.
[2022-02-09 10:00] LABS: Chloride* 102 mmol/L (96-114); Potassium* 4.5 mmol/L (3.6-5.1); Sodium* 138 mmol/L (135-149)
[2022-02-09 10:03] LABS: Blood Urea Nitrogen* 14 mg/dL (7-30); Carbon Dioxide* 27 mmol/L (20-32); Creatinine* 0.6 mg/dL (0.5-1.5); Estimated Glomerular Filt Rate 109 ml/min; Glucose* 152 mg/dL (60-115)
[2022-02-09 10:04] LABS: Calcium* 9.1 mg/dL (8.4-10.6); D Dimer Quantitative* 0.44 ug/ml (0.00-0.50)
[2022-02-09 10:13] LABS: NT Pro B Type NatriureticPept* 80 PG/mL (0-125)
--- NOTE | 2022-02-09 11:28 | ED.NURSE ---
imaging placed a Holter monitor on. patient is feeling better and eager to go home.
[2022-02-09 11:45] VITALS: BP 152/87; PULSE 84; RESP 18; O2SAT 96
== END 2022-02-09 11:55 | disposition home or self-care (01) ==
PROVIDERS: Emergency Provider Family Medicine; PCP Family Medicine
DX: R00.8 Other abnormalities of heart beat (principal)
CPT/HCPCS: 36415; 71046; 80048; 83880; 84443; 85025; 85379; 93005; 93225; 93226; 99285

== ENCOUNTER 2022-11-24 16:42 | Emergency (ER) | payer BC, OTHER, SELFPAY ==
[2022-11-24 16:45] VITALS: BP 159/105; PULSE 95; RESP 20; TEMP 36.2; O2SAT 97; BMI 57.4
--- NOTE | 2022-11-24 17:02 | CRLHL7_ITS ---
For Patients: As a result of the Century Cures Act, medical imaging exams and procedure reports are released immediately into your electronic medical record. You may view this report before your referring provider. If you have questions, please contact your health care provider. INDICATION: Epigastric pain. TECHNIQUE: CT abdomen and pelvis acquired with 150 cc Isovue 370 IV contrast. COMPARISON: 04/20/2018. FINDINGS: Lower chest: Unremarkable. Liver: Unremarkable. Normal in size and attenuation. No suspicious masses. Gallbladder and bile ducts: Unremarkable. No stones or inflammation. No biliary ductal dilatation. Spleen: Unremarkable. Normal in size. No masses. Adrenal glands: Unremarkable. No nodules. Pancreas: Fatty atrophy of the pancreas. Kidneys: Unremarkable. No suspicious masses, stones, or hydronephrosis. GI tract: Unremarkable. Normal in caliber. No sign of mass or inflammation. Normal appendix. Lymph nodes: No lymphadenopathy. Vasculature: Unremarkable. Omentum/Peritoneum/Abdominal Wall: Unremarkable. No sign of mass or infiltration. No free air or significant free fluid. Pelvis: Unremarkable. IUD in place. Bones: Unremarkable for age. IMPRESSION: No acute abdominal or pelvic abnormalities. Please note that all CT scans at this facility use dose modulation, iterative reconstruction, and/or weight-based dosing when appropriate to reduce radiation dose to as low as reasonably achievable. Dictated by Quintin Torres MD @ 11/24/2022 6:29:30 PM (Electronically Signed)
--- NOTE | 2022-11-24 17:04 | ED.ABDPAIN ---
HPI - Abdominal Pain General Chief Complaint: Abdominal Pain Stated Complaint: Abdominal pain Time Seen by Provider: 11/24/22 16:50 History of Present Illness HPI narrative: This 51-year-old female comes in reporting epigastric abdominal pain for the past couple days. She states that it is a constant pain. It seems to be worse when she stands up straight. She reports that she has a history of reflux symptoms and does take a proton pump inhibitor. She states that the pain started with some of these same symptoms in her throat and chest but now has persistent pain in the mid to upper epigastric region. She has not had any nausea, vomiting, diarrhea, or fevers. Related Data Home Medications Medication Instructions Recorded Confirmed cholecalciferol (vitamin D3) 1,250 1,250 mcg PO QWEEK 10/31/21 02/13/22 mcg (50,000 unit) capsule dulaglutide 0.75 mg/0.5 mL 0.75 mg subcut QWEEK 10/31/21 02/13/22 subcutaneous pen injector (Trulicleidy) Previous Rx's Medication Instructions Recorded metformin 500 mg tablet,extended 1,000 mg (2 x 500 mg) PO QDAY #180 11/06/21 release 24hr tabs fluconazole 150 mg tablet 150 mg PO Q3D 2 doses #2 tabs 12/18/21 (Diflucan) amlodipine 2.5 mg tablet 2.5 mg PO QDAY #90 tabs 01/02/22 Blood Glucose Meter #1 ea 02/13/22 blood sugar diagnostic (Blood #100 ea 02/13/22 Glucose Test strips) dulaglutide 1.5 mg/0.5 mL 1.5 mg (0.5 mL) subcut QWEEK #2 mL 02/13/22 subcutaneous pen injector lancets 32 gauge (Easy Touch #100 ea 02/13/22 Lancets) metoprolol succinate 25 mg capsule 25 mg PO QDAY #90 ea 02/13/22 sprinkle, ext. release 24 hr metoprolol succinate 25 mg 25 mg PO QDAY #90 tabs 02/13/22 tablet,extended release 24 hr apixaban 5 mg tablet (Eliquis) See Rx Instructions .Route 03/04/22 .COMPLEX #180 tabs fluoxetine 20 mg tablet 20 mg PO QDAY #90 tabs 04/01/22 dulaglutide 3 mg/0.5 mL 3 mg (0.5 mL) subcut QWEEK #2 mL 09/06/22 subcutaneous pen injector ([facility]) omeprazole 40 mg capsule,delayed 40 mg PO QDAY #90 caps 09/10/22 release nystatin 100,000 unit/gram topical 1 applic topical TID #60 grams 11/01/22 powder valsartan 160 mg tablet 160 mg PO QDAY #90 tabs 11/11/22 Allergies Allergy/AdvReac Type Severity Reaction Status Date / Time hydrocodone Allergy Intermediate Vomiting Verified 11/24/22 16:50 rivaroxaban Allergy Mild Joint Verified 11/24/22 16:50 aches and pain prochlorperazine AdvReac Severe Anger/altered Verified 11/24/22 16:50 mentation hydrochlorothiazide AdvReac Mild Ill feeling Verified 11/24/22 16:50 Review of Systems Status of ROS Reports: 10 or more systems reviewed and unremarkable except as noted in History and below Narrative Constitutional: No fevers, no weight gain or loss. Eyes: No discharge. No vision changes. HENT: No congestion, no sore throat, no ear pain. Cardiovascular: No chest pain, no palpitations. Respiratory: No shortness of breath, no wheezes, no cough. Gastrointestinal: No vomiting, no diarrhea. Abdominal pain as described above. Genitourinary: No dysuria, no hematuria. Musculoskeletal: Normal range of motion. Skin: No rashes, no pruritis. Neurological: No dizziness, weakness, sensory change, speech change. Endo/Heme/Allergies: No bruising or bleeding. No polydipsia. Pysch: no suicidality, no anxiety, no insomnia. All other systems reviewed and are negative. [facility] Medical History History of deep venous thrombosis (DVT) of distal vein of left lower extremity History of pulmonary embolism Palpitations Surgical History History of dilation and curettage History of laser assisted in situ keratomileusis (05/06/12) Status post lumbar laminectomy Family History Other Colon cancer Social History Smoking Status: Never smoker Second hand tobacco smoke exposure: No How often do you have a drink containing alcohol: never How often do you have six or more drinks on one occasion: Never AUDIT-C Alcohol total score: 0 Non-prescribed substance use: denies use Exam Narrative: Exam Narrative: Constitutional: Well-developed, well-nourished, no acute distress. HEENT: Normocephalic, atraumatic. Neck: Normal range of motion. Nontender. Supple. Heart: Regular. No murmurs. Normal rate. Intact distal pulses. Lungs: Clear to auscultation. No chest discomfort. No wheezes, rhonchi, or rales. Abdomen: Normal bowel sounds. Diffuse tenderness in the upper abdomen. No rebound tenderness. Genitalia: Deferred. Back: No midline tenderness. Normal range of motion. Extremities: Normal range of motion. No injury. Skin: Intact. No rash. Warm. No erythema or pallor. Neurologic: No altered sensation. No weakness. Alert and oriented. Psychiatric: No suicidality. No anxiety or depression. No insomnia. Nursing notes and vitals signs are reviewed. Const: Vital Signs, click to edit/add: Vital Signs - 24 hr 11/24/22 16:45 Temperature 97.1 F L Pulse Rate [Right Pulse Oximeter] 95 Respiratory Rate 20 Blood Pressure [Ri ght Upper Arm] 159/105 H Pulse Oximetry 97 Oxygen Delivery Me thod Room Air Course Vital Signs Vital signs: Initial Vital Signs Temperature 97.1 F L 11/24/22 16:45 Temperature Source Temporal Artery Scan 11/24/22 16:45 Pulse Rate 95 11/24/22 16:45 Pulse Rhythm Regular 11/24/22 16:45 Pulse Strength 3+ Normal 11/24/22 16:45 Respiratory Rate 20 11/24/22 16:45 Blood Pressure 159/105 H 11/24/22 16:45 Blood Pressure Mean 123 H 11/24/22 16:45 Blood Pressure Position Sitting 11/24/22 16:45 Pulse Oximetry 97 11/24/22 16:45 Oxygen Delivery Method Room Air 11/24/22 16:45 Vital Signs Temperature 97.1 F L 11/24/22 16:45 Pulse Rate 95 11/24/22 16:45 Respiratory Rate 20 11/24/22 16:45 Blood Pressure 159/105 H 11/24/22 16:45 Pulse Oximetry 97 11/24/22 16:45 Oxygen Delivery Method Room Air 11/24/22 16:45 Temperature 97.1 F L 11/24/22 16:45 Pulse Rate 95 11/24/22 16:45 Respiratory Rate 20 11/24/22 16:45 Blood Pressure 159/105 H 11/24/22 16:45 Pulse Oximetry 97 11/24/22 16:45 Oxygen Delivery Method Room Air 11/24/22 16:45 MDM - Abdominal Pain MDM Narrative Medical decision making narrative: This patient comes in with abdominal pain over the past couple days as described above. She states that the pain is worse when standing upright. She did have an IV placed and is CT scan of the abdomen and pelvis was completed. She states that when she lifted her arms up overhead for the CT scan this made the pain worse in her upper abdomen. CT imaging returns with no acute findings to explain her pain. Additionally lab results are also reassuring. Her white count and lipase is and electrolytes are in normal range. Also her liver enzymes are normal. It does seem that the this patient's abdominal pain is more musculoskeletal in nature. She does have a history of reflux symptoms. She is taking omeprazole daily. She is okay to return home. I did provide prescription for Toradol and Zofran. The patient states that she has a consultation appointment in a month or 2 to consider gastric bypass surgery as she is unable to lose weight. Lab Data Labs: Lab Results 11/24/22 Range/Units 17:12 WBC 9.29 (4.50-11.00) K/uL RBC 5.49 H (4.00-5.20) m/uL Hgb 13.7 (12.0-16.0) gm/dL Hct 44.0 (33.0-51.0) % MCV 80 (80-100) fL MCH 25 L (26-34) pg MCHC 31 L (32-36) gm/dL RDW Coeff of Katrina 14.1 (11.5-15.5) % Plt Count 333 (140-440) K/uL Neut % (Auto) 74.1 H (42.0-72.0) % Lymph % (Auto) 18.2 L (20-44) % [place] % (Auto) 5.1 (0.0-11.0) % Eos % (Auto) 2.0 (0.0-7.0) % Baso % (Auto) 0.2 (0.0-3.0) % Neut # (Auto) 6.90 (1.7-7.0) K/uL Lymph # (Auto) 1.70 (0.90-2.90) K/uL Sweet [place] # (Auto) 0.50 (0.00-0.90) K/UL Eos # (Auto) 0.19 (0.00-0.50) K/uL Baso # (Auto) 0.02 (0.00-0.30) K/uL Abs Immat Gran (auto) 0.04 (0.00-0.30) K/uL Imm/Tot Granulo (auto) 0.4 % Sodium 135 (135-149) mmol/L Potassium 3.9 (3.6-5.1) mmol/L Chloride 100 (96-114) mmol/L Carbon Dioxide 27 (20-32) mmol/L BUN 8 (7-30) mg/dL Creatinine 0.7 (0.5-1.5) mg/dL Estimated Creat Clear 103.97 Estimated GFR 105 ml/min Glucose 149 H (60-115) mg/dL Calcium 9.6 (8.4-10.6) mg/dL Total Bilirubin 0.8 (0.1-1.5) mg/dL Direct Bilirubin 0.2 (0.0-0.5) mg/dL AST 28 (12-35) U/L ALT 26 (4-35) U/L Alkaline Phosphatase 96 (40-150) U/L Total Protein 7.5 (6.0-8.3) g/dL Albumin 4.0 (3.3-5.0) g/dL Lipase 71 (23-300) U/L Imaging Data CT scan - abdomen: Radiologist's impression: No acute abdominal or pelvic abnormalities. Discharge Plan Discharge Clinical Impression: Abdominal pain Patient Disposition: Home, Self-Care Condition: Stable Additional Instructions: Take medication as needed and directed. Okay to take an extra 40 mg of omeprazole for the next week or so. Follow up with MD as needed. Return if worsening. Prescriptions: No Action metoprolol succinate 25 mg capsule,sprinkle,ER 24hr 25 mg PO QDAY Qty: 90 3RF dulaglutide 1.5 mg/0.5 mL pen injector 1.5 mg subcut QWEEK Qty: 2 4RF metoprolol succinate 25 mg tablet extended release 24 hr 25 mg PO QDAY Qty: 90 3RF (DME) Blood Glucose Meter Misc See Rx Instructions .Route Qty: 1 0RF Rx Instructions: As directed (DME) Blood Glucose Test Strip See Rx Instructions .Route Qty: 100 3RF Rx Instructions: Daily (DME) Easy Touch Lancets 32 gauge misc See Rx Instructions .Route Qty: 100 3RF Rx Instructions: Daily fluconazole [Diflucan] 150 mg tablet 150 mg PO Q3D Qty: 2 0RF Trulicity 0.75 mg/0.5 mL pen injector 0.75 mg subcut QWEEK cholecalciferol (vitamin D3) 1,250 mcg (50,000 unit) capsule 1,250 mcg PO QWEEK metformin 500 mg tablet extended release 24hr 1,000 mg PO QDAY Qty: 180 3RF amlodipine 2.5 mg tablet 2.5 mg PO QDAY Qty: 90 3RF Eliquis 5 mg tablet See Rx Instructions .ROUTE .COMPLEX Qty: 180 3RF Dose Instruction: TAKE 1 TABLET TWICE A DAY Rx Instructions: TAKE 1 TABLET TWICE A DAY fluoxetine 20 mg tablet 20 mg PO QDAY Qty: 90 1RF Trulicity 3 mg/0.5 mL pen injector 3 mg subcut QWEEK Qty: 2 2RF omeprazole 40 mg capsule,delayed release(DR/EC) 40 mg PO QDAY Qty: 90 1RF nystatin 100,000 unit/gram powder 1 applic topical TID Qty: 60 1RF valsartan 160 mg tablet 160 mg PO QDAY Qty: 90 3RF Follow Up/Referrals: Shaun Barrett MD [Primary Care Provider] - [facility]
[2022-11-24] MEDS: ONDANSETRON 2 MG/ML inj 4 MG IVP (17:20)
[2022-11-24 17:26] LABS: Hemoglobin* 13.7 gm/dL (12.0-16.0); Lymphocytes Percent Auto 18.2 % (20-44); Mean Corpuscular HGB Conc 31 gm/dL (32-36); Mean Corpuscular Hemoglobin 25 pg (26-34); Mean Corpuscular Volume 80 fL (80-100); Monocytes Percent Auto 5.1 % (0.0-11.0); Neutrophils Percent Auto 74.1 % (42.0-72.0); Platelet Count* 333 K/uL (140-440); RDW Coefficient of Variation % 14.1 % (11.5-15.5); Red Blood Count 5.49 m/uL (4.00-5.20); White Blood Count* 9.29 K/uL (4.50-11.00)
[2022-11-24 17:27] LABS: Basophils Absolute Auto 0.02 K/uL (0.00-0.30); Basophils Percent Auto 0.2 % (0.0-3.0); Eosinophils Absolute Auto 0.19 K/uL (0.00-0.50); Immature Granulocytes Abs Auto 0.04 K/uL (0.00-0.30); Immature Granulocytes Pct Auto 0.4 %
[2022-11-24 17:30] LABS: Slide Review Reflex No
[2022-11-24 17:41] LABS: Chloride* 100 mmol/L (96-114)
[2022-11-24 17:42] LABS: Potassium* 3.9 mmol/L (3.6-5.1); Sodium* 135 mmol/L (135-149)
[2022-11-24 17:44] LABS: Alkaline Phosphatase* 96 U/L (40-150); Aspartate Amino Transferase* 28 U/L (12-35); Bilirubin Direct* 0.2 mg/dL (0.0-0.5); Bilirubin Total* 0.8 mg/dL (0.1-1.5); Blood Urea Nitrogen* 8 mg/dL (7-30); Carbon Dioxide* 27 mmol/L (20-32); Creatinine* 0.7 mg/dL (0.5-1.5); Est. Creatinine Clearance* 103.97; Estimated Glomerular Filt Rate 105 ml/min; Glucose* 149 mg/dL (60-115); Lipase* 71 U/L (23-300); Total Protein* 7.5 g/dL (6.0-8.3)
[2022-11-24 17:45] LABS: Alanine Aminotransferase* 26 U/L (4-35); Calcium* 9.6 mg/dL (8.4-10.6)
[2022-11-24] MEDS: HYDROmorphone 0.5 mg/0.5 ml inj IVP (17:45)
== END 2022-11-24 19:12 | disposition home or self-care (01) ==
PROVIDERS: Emergency Provider Emergency Medicine Emergency Medical Services; PCP Family Medicine
DX: R10.13 Epigastric pain (principal)
CPT/HCPCS: 36415; 74177; 80048; 80076; 83690; 85025; 96374; 96375; 99283; 99284; J1170; J2405; Q9967

== ENCOUNTER 2022-12-23 10:58 | Outpatient (CLI) | payer BC, OTHER, SELFPAY | END 2022-12-23 10:59 | disposition home or self-care (01) | PROVIDERS: PCP Family Medicine; Visit Provider Family Medicine | DX: E11.9 Type 2 diabetes mellitus without complications (principal); I10 Essential (primary) hypertension; E66.01 Morbid (severe) obesity due to excess calories; Z13.6 Encounter for screening for cardiovascular disorders | CPT/HCPCS: 80061 ==

== ENCOUNTER 2024-05-24 21:03 | Emergency (ER) | payer BC, OTHER, SELFPAY ==
--- OUTSIDE RECORDS SUMMARY | 2024-05-24 21:05 | XMS_ITS | Clinical Summary ---
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 For routine questions regarding patient records, call [phone] during business hours, M-F 8:00 AM - 5:00 PM Central Time. Record requests for emergency care only can be directed to [phone] at any time.[facility] Active Problems Problem Noted Date Diagnosed Date Diabetes Mellitus Type 2 01/21/2023 Gastroesophageal Reflux Disease 01/21/2023 Hypertension Essential Primary 09/27/2011 Polycystic Ovary Syndrome 10/26/2009 Apnea Sleep Obstructive 09/19/2008 Social History Tobacco Use Types Packs/Day Years Used Date Smoking Tobacco: Never Assessed Nutrition Answer Date Recorded Nutrition: EVOO Fat Source Unknown 11/22 Nutrition: Servings of Fruits/Vegetables per Day Not on file 11/22/2022 Dental Answer Date Recorded Dental: Regular Dentist Unknown 11/23/19 23 Comments Unknown Sex and Gender Information Value Date Recorded Sex Assigned at Not on file 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 Gender Identity Not on file Sexual Orientation Not on file Plan of Treatment Health Maintenance Due Date Last Done Comments CT Colonography 1971 Cervical/Vaginal Cancer Screening 1971 Cologuard 1971 Colonoscopy 1971 Colorectal Cancer Screening 1971 Diabetic Office Visit with Foot Exam 1971 Dilated Eye Exam 1971 FIT 1971 HIV Screening 1971 Hemoglobin A1C 1971 Hepatitis C Screening 1971 Lipid (Cholesterol) Screening 1971 Mammogram 1971 Office Visit for Blood Pressure Check / Re-check 1971 Urine Albumin 1971 Pneumococcal vaccine (50+ years) (2 of 2 - PCV) 02/12/2009 02/13/2008 DTaP,Tdap,and Td Vaccines (1 - Tdap) 11/27/2016 11/26/2016 Zoster Vaccines (1 of 2) 12/24/2021 Creatinine Level (Kidney Function Test) 08/18/2022 08/18/2021 Potassium Level 08/18/2022 08/18/2021 Sodium Level 08/18/2022 08/18/2021 COVID-19 Vaccine ( season) 2023 04/03/2021, 06/20/2020, 05/27/2020 Influenza Vaccine (#1) 2024 , 02/13/2022, 04/03/2021, Additional history exists Depression Screening (Annual PHQ-2) 04/14/2024 Hepatitis B Vaccines Completed 07/13/1992, 02/08/1992, 01/11/1992 IPV Vaccines Aged Out No longer eligi ble based on patient's age to complete this topic Insurance [facility]
--- OUTSIDE RECORDS SUMMARY | 2024-05-24 21:05 | XMS_ITS | Clinical Summary ---
Author Organization [employer] [facility] [employer] Aff[facility]ates Address [place], [place] [address] Care Team Providers Care Portal Developer Name Role Phone Shaun Barrett MD Primary Care Provider [phone] Allergies Active Allergy Reactions Criticality Noted Date Comments Prochlorperazine Behavioral Disturbances 2024 Patient requests not to receive Medications levonorgestrel intrauterine device (MIRENA) 20 mcg/24 hour (5 years) IUD Inject 1 Device intrauterine one time. Active losartan (COZAAR) 50 mg tablet Take 1 tablet by mouth once daily. 0 6 Active cyanocobalamin (VITAMIN B-12) 1,000 mcg tablet Take 1 tablet by mouth once daily. 0 6 Active sertraline (ZOLOFT) 25 mg tablet Take 1 tablet by mouth once daily. 0 7 Active amLODIPine (NORVASC) 2.5 mg tablet 2 Active Eliquis 5 mg tablet 1 Active FLUoxetine 20 mg tablet Take 20 mg by mouth once daily. 2 Active hydroCHLOROthiaz terra 12.5 mg capsule 2 Active metFORMIN (GLUCOPHAGE XR) 500 mg Extended-Release tablet Take 1,000 mg by mouth once daily. 1 Active omeprazole (PRILOSEC) 40 mg Delayed-Release capsule Take 40 mg by mouth once daily. 2 Active sucralfate (CARAFATE) 1 gram tablet 2 Active Active Problems Problem Noted Date Diagnosed Date Mixed stress and urge urinary incontinence 05/29 Obstructive sleep apnea 09/19/2008 CHEST PAIN--ETIOLOGY UNCERTAIN 09/19/2008 FACTOR V DEFICIENCY--Heterozygote 09/19/2008 SYNCOPE 09/19/2008 Overview (09/19/2008): Morning of admission Likely Vasovagal (after shower, with CP, and bending over) 33 lbs Intentional Weight Loss 09/19/2008 Morbid obesity 09/19/2008 Overview (09/19/2008): BMI 40.41 09/20 prison (current) use of anticoagulants 2007 Congenital insufficiency of aortic valve 007 Overview (05/05/2007): Bicuspid Aortic Valve Recheck Echo 04/2008 Other pulmonary embolism and infarction 03/16/20 07 Lumbago 03/13/2007 Dysthymic disorder 03/10/2007 Overview (03/10/2007): Depression Encounters Date Type Department Care Team Description 05/24/2024 8:26 AM [facility] - 05/24/2024 11:42 AM [facility] Emergency [facility] [address] [place], [place] [id number] Jay Zamora MD Lightheaded (Primary Dx); Chest pain, unspecified type; Hypertension; Current use of fdc anticoagulation; IUD (intrauterine device) in place Discharge Disposition: Home Self Care 05/24/2024 Travel from Last 3 Months Immunizations Name Administration Dates Next Due Pneumococcal Poly,23-Valent (Pneumovax) 02/13/20 08 Family History Medical History Relation Name Comments Diabetes Father Hypertension Father Cancer Mother uterine Cancer-breast Mother may have had b reast but unsure where CA started do to also having uterin Hypertension Mother Cancer-colon No Family History Cancer-ovarian No Family History Cancer-prostate No Family History Relation Name Status Comments Father Mother Social History Tobacco Use Types Packs/Day Years Used Date Smoking Tobacco: Former Cigarettes Smokeless Tobacco: Former Alcohol Use Standard Drinks/Week Comments No 1.7 (1 standard drink = 0.6 oz p ure alcohol) Social Connections Answer Date Recorded Frequency of Communication with Friends and Fami ly Not on file 03/29/2023 Interpersonal Safety Answer Date Record ed Are you being hit, kicked, p ushed or yelled at (see row info)? No 05/24/2024 Interpersonal Safety Abuse 12 - 18 Not on file 05/24/2024 Interpersonal Safety Ambulatory Vulnerability No t on file 05/24/2024 Comments No Sex and Gender Information Value Date Recorded Sex Assigned at Not on file Legal Sex Female 5:26 AM AIRPLANE ELECTRICAL REPAIRER Gender Identity Not on file Sexual Orientation Not on file Occupation Industry Job Start Date Job End Date Not on file Not on file Not on file Not on file Obstetrics History Last Filed Vital Signs Vital Sign Reading Time Taken Comments Blood Pressure 109/70 05/24/2024 11:34 AM AIRPLANE ELECTRICAL REPAIRER Pulse 83 05/24/2024 11:34 AM AIRPLANE ELECTRICAL REPAIRER Temperature 36.2 C (97.2 F) 05/24/2024 9:29 AM AIRPLANE ELECTRICAL REPAIRER Respiratory Rate 15 05/24/2024 8:23 AM AIRPLANE ELECTRICAL REPAIRER Oxygen Saturation 100% 05/24/2024 11: 34 AM AIRPLANE ELECTRICAL REPAIRER Inhaled Oxygen Concentration - - Weight 136.6 kg (301 lb 3.2 oz) 05/24/2024 9:39 AM AIRPLANE ELECTRICAL REPAIRER Height 180.3 cm (5' 11) 05/24/2024 9:39 AM AIRPLANE ELECTRICAL REPAIRER Body Mass Index 42.01 05/24/2024 9:39 AM AIRPLANE ELECTRICAL REPAIRER Plan of Treatment Health Maintenance Due Date Last Done Comments Tdap 12/24/1982 Depression screening for age 12+ 1983 HIV for age 15-65 12/24/1986 BMI (ht and wt on same day) for age 18+ 12/24/1989 Hepatitis C screening for age 18-79 12/24/1989 Tetanus booster 1991 Pneumococcal series for age 50+ (2 of 2 - PCV) 02/12/2009 02/13/2008 Pap test for age 21-65 05/17/2014 2, 05/17/2011, 09/21/2004 Colonoscopy through age 75 12/24/2016 Lipids for age 45-75 12/24/2016 09/21/2008, 03/26/20 07 Mammogram for age 45-75 12/24/2016 06/15/2013 Zoster (shingles) series for age 50+ (1 of 2) 12/24/2021 COVID-19 vaccine series (3 - 2023- season) 2023 06/20/2020, 05/27/2020 Influenza for age 50-64 12/14/2023 Procedures Procedure Name Priority Date/Time Associated Diagnosis Comments TROPONIN I Timed 05/24/2024 10:40 AM AIRPLANE ELECTRICAL REPAIRER EKG 12 LEAD Timed 05/24/2024 9:49 AM AIRPLANE ELECTRICAL REPAIRER XR CHEST 1 VIEW PORTABLE STAT 05/24/2024 9:18 AM AIRPLANE ELECTRICAL REPAIRER CBC WITH AUTO DIFFERENTIAL STAT 05/24/2024 8:45 AM AIRPLANE ELECTRICAL REPAIRER TROPONIN I STAT 05/24/2024 8:45 AM AIRPLANE ELECTRICAL REPAIRER COMP METABOLIC PANEL STAT 05/24/2024 8:45 AM AIRPLANE ELECTRICAL REPAIRER CBC WITH AUTO DIFFERENTIAL STAT 05/24/2024 8:45 AM AIRPLANE ELECTRICAL REPAIRER EKG 12 LEAD STAT 05/24/2024 8:25 AM AIRPLANE ELECTRICAL REPAIRER XR MAMMO BILAT DIAG FFDM (IA) Routine 06/15/2013 2:28 PM AIRPLANE ELECTRICAL REPAIRER Breast mass HPV HIGH RISK Timed 05/17/2011 7:50 AM AIRPLANE ELECTRICAL REPAIRER LIPID PANEL Early AM 09/21/2008 7:45 AM CDT from Last 3 Months or Most Recently Relevant to Health Maintenance Results * TROPONIN I (05/24/2024 10:40 AM AIRPLANE ELECTRICAL REPAIRER) Only the most recent of2 resultswithin the time period is included. TROPONIN I ANTELMO <0.020 0.000 - 0.034 ng/mL 05/24/2024 11:14 AM AIRPLANE ELECTRICAL REPAIRER [facility] Blood BLOOD SPECIMEN / Unknown Venipuncture / Unknown 05/24/2024 10:40 AM AIRPLANE ELECTRICAL REPAIRER 05/24/2024 10:46 AM AIRPLANE ELECTRICAL REPAIRER us Jay Zamora MD CHEMISTRY Final Result [facility] [address] [place] [address], * XR CHEST 1 VIEW PORTABLE (05/24/2024 9:18 AM AIRPLANE ELECTRICAL REPAIRER) Anatomical Region Laterality Modality HEART, THORAX, CHEST Digital Rad iography 05/24/2024 9:29 AM AIRPLANE ELECTRICAL REPAIRER Impressions 05/24/2024 9:29 AM AIRPLANE ELECTRICAL REPAIRER No evidence of acute cardiopulmonary disease. Dictated by Bro Robb MD @ 05/24/2024 9:29:04 AM (Electronically Signed) Narrative 05/24/2024 9:29 AM AIRPLANE ELECTRICAL REPAIRER For Patients: As a result of the Cures Act, medical imaging exams and procedure reports are released immediately into your electronic medical record. You may view this report before your referring provider. If you have questions, please contact your health care provider. INDICATION: Chest pain. TECHNIQUE: Chest 1 portable view. COMPARISON: None. FINDINGS: No pneumothorax or pleural effusion. Lungs are clear. Cardiac and mediastinal contours are within normal limits. Upper abdomen and osseous structures as imaged show no acute abnormality. Procedure Note Bro Robb, DO - 05/24/2024 For Patients: As a result of the Cures Act, medical imagingexams and procedure reports are released immediately into your electronicmedical record. You may view this report before your referring provider.If you have questions, please contact your health care provider. INDICATION: Chest pain. TECHNIQUE: Chest 1 portable view. COMPARISON: None. FINDINGS: No pneumothorax or pleural effusion. Lungs are clear. Cardiac andmediastinal contours are within normal limits. Upper abdomen and osseousstructures as imaged show no acute abnormality. IMPRESSION: No evidence of acute cardiopulmonary disease. Dictated by Bro Robb MD @ 05/24/2024 9:29:04 AM (Electronically Signed) Jay Zamora MD GENERAL IMAGING Final Result * (ABNORMAL) CBC WITH AUTO DIFFERENTIAL (05/24/2024 8:45 AM AIRPLANE ELECTRICAL REPAIRER) WHITE BLOOD COUNT 7.9 4.5 - 11.0 thou/cu mm 05/24/2024 8:53 AM AIRPLANE ELECTRICAL REPAIRER [facility] RED BLOOD COUNT 5.82(H) 3.90 - 5.20 mil/cu mm 05/24/2024 8:[address] [facility] HEMOGLOBIN 14.2 11.9 - 15.6 g/dL 05/24/2024 8:[address] [facility] HEMATOCRIT 44.9 33.0 - 51.0 % 05/24/2024 8:[address] [facility] MCV 77(L) 80 - 100 fL 05/24/2024 8:[address] [facility] MCH 24.4(L) 26.0 - 34.0 pg 05/24/2024 8:[address] [facility] MCHC 31.6(L) 32.0 - 36.0 g/dL 05/24/2024 8:[address] [facility] RDW 14.4 11.5 - 15.5 % 05/24/2024 8:[address] [facility] PLATELET COUNT 323 140 - 440 thou/cu mm 05/24/2024 8:[address] [facility] MPV 10.2 6.5 - 11.0 fL 05/24/2024 8:[address] [facility] % NEUT 63.4 42.0 - 72.0 % 05/24/2024 8:[address] [facility] % LYMPH 28.4 20.0 - 44.0 % 05/24/2024 8:[address] [facility] % MONO 5.5 <=12.0 % 05/24/2024 8:[address] [facility] % EOS 1.9 <=8.0 % 05/24/2024 8:[address] [facility] % BASO 0.5 <=3.0 % 05/24/2024 8:[address] [facility] ABSOLUTE NEUTROPHILS 5.0 1.7 - 7.0 thou/cu mm 05/24/2024 8:[address] [facility] ABSOLUTE LYMPHOCYTES 2.2 0.9 - 2.9 thou/cu mm 05/24/2024 8:[address] [facility] ABSOLUTE MONOCYTES 0.4 <=0.9 thou/cu mm 05/24/2024 8:[address] [facility] ABSOLUTE EOSINOPHILS 0.2 <=0.5 thou/cu mm 05/24/2024 8:[address] [facility] ABSOLUTE BASOPHILS 0.0 <=0.3 thou/cu mm 05/24/2024 8:[address] [facility] Blood BLOOD SPECIMEN / Unknown IV Start / Unknown 05/24/2024 8:45 AM AIRPLANE ELECTRICAL REPAIRER 05/24/2024 8:50 AM AIRPLANE ELECTRICAL REPAIRER us Jay Zamora MD HEMATOLOGY Final Result [facility] [address] [place] [address], [place] [phone] * (ABNORMAL) COMP METABOLIC PANEL (05/24/2024 8:45 AM AIRPLANE ELECTRICAL REPAIRER) SODIUM 138 137 - 145 mmol/L 05/24/2024 9:[address] [facility] POTASSIUM 4.0 3.5 - 5.1 mmol/L 05/24/2024 9:[address] [facility] CHLORIDE 108(H) 98 - 107 mmol/L 05/24/2024 9:[address] [facility] CO2,TOTAL 22 22 - 30 mmol/L 05/24/2024 9:[address] [facility] GLUCOSE 95 65 - 100 mg/dL 05/24/2024 9:[address] [facility] CALCIUM 9.5 8.4 - 10.2 mg/dL 05/24/2024 9:[address] [facility] BUN 16 7 - 17 mg/dL 05/24/2024 9:[address] [facility] CREATININE 0.90 0.52 - 1.04 mg/dL 05/24/2024 9:[address] [facility] eGFR 77(L) >90 mL/min/1.7 3m2 05/24/2024 9:[address] [facility] Comment:As of 2021, eG FR is calculated by the CKD-EPI creatinine equation without race adjustment. eGFR can be influenced by muscle mass, exercise, and diet. The reported eGFR is an estimation only and is only applicable if the renal function is stable. PROTEIN,TOTAL 7.6 6.3 - 8.2 g/dL 05/24/2024 9:[address] [facility] BILIRUBIN,TOTAL 0.7 0.2 - 1.3 mg/dL 05/24/2024 9:[address] [facility] ALK PHOSPHATASE ANTELMO 83 38 - 126 IU/L 05/24/2024 9:[address] [facility] ALT (SGPT) ANTELMO 16 <35 IU/L 05/24/2024 9:[address] [facility] AST (SGOT) ANTELMO 19 14 - 36 IU/L 05/24/2024 9:[address] [facility] ALBUMIN 4.4 3.6 - 5.0 g/dL 05/24/2024 9:[address] [facility] GLOBULIN 3.2 2.1 - 4.1 g/dL 05/24/2024 9:[address] [facility] A/G RATIO 1.4 0.8 - 2.0 05/24/2024 9:[address] [facility] ANION GAP 8 5 - 18 05/24/2024 9:[address] [facility] BUN/CREAT RATIO 18 10 - 20 9:[address] [facility] Blood BLOOD SPECIMEN / Unknown IV Start / Unknown 05/24/2024 8:45 AM AIRPLANE ELECTRICAL REPAIRER 05/24/2024 8:50 AM AIRPLANE ELECTRICAL REPAIRER us Jay Zamora MD CHEMISTRY Final Result [facility] [address] [place] [address], [place] [phone] * XR MAMMO BILAT DIAG FFDM (06/15/2013 2:28 PM AIRPLANE ELECTRICAL REPAIRER) Anatomical Region Laterality Modality BREASTS, Breast Left, Breast Right Bilateral Mammography Impressions 06/16/2013 3:35 PM AIRPLANE ELECTRICAL REPAIRER 1. No mammographic evidence for carcinoma BILATERALLY. No abnormality is seen within the LEFT breast mammographically which would explain the patient's reported pain. 2. 0.6 x 0.5 x 0.5 cm hypoechoic somewhat ill-defined shadowing mass 3:00 position of the LEFT breast 3 cm from the nipple. Carcinoma is of concern. Because of this, ultrasound-guided biopsy is recommended. Ultrasound evaluation of the lower outer quadrant of the LEFT breast is otherwise unremarkable. No focal fluid collections are seen concerning for abscess. ACR 4 Suspicious Abnormality - Biopsy Should Be Considered Félix Morejon M.D. Breast/Diagnostic Radiologist [email or web address] PAT:leticia / Narrative 06/16/2013 3:35 PM AIRPLANE ELECTRICAL REPAIRER BILATERAL DIAGNOSTIC MAMMOGRAM LEFT BREAST ULTRASOUND CLINICAL HISTORY: 42-year-old patient. History of three episodes of mastitis of the LEFT breast. Currently on day 10 of antibiotic therapy for her most recent episode. Persistent pain lower outer quadrant of the LEFT breast. Study done for further evaluation. TECHNIQUE: Craniocaudal and MLO projections of the BILATERAL breasts utilizing digital imaging and computer-aided detection. Also performed was an ultrasound of the lower outer quadrant of the LEFT breast corresponding to location of the patient's pain. COMPARISON: Mammograms 07/21/2012 and 07/01/2012. FINDINGS: Mammographically, the breast is composed predominantly of fat. No mammographic evidence for carcinoma is identified BILATERALLY. No abnormality seen which would explain the patient's reported pain. Ultrasound evaluation of the lower outer quadrant of the LEFT breast demonstrates no focal fluid collections concerning for abscess. However, there is a subtle 0.5 x 0.5 x 0.6 cm hypoechoic shadowing focus at the 3:00 position 3 cm from the nipple. Appearance of the mass is indeterminate although a underlying carcinoma is not excluded on the basis of this exam. Because of this, ultrasound-guided biopsy is recommended. Unfortunately, this could not be performed today as the patient is on Coumadin. Because of this, this will be scheduled to be performed at a later date. Procedure Note Félix Morejon MD - 06/16/2013 BILATERAL DIAGNOSTIC MAMMOGRAM LEFT BREAST ULTRASOUND CLINICAL HISTORY: 42-year-old patient. History of three episodes ofmastitis of the LEFT breast. Currently on day 10 of antibiotic therapyfor her most recent episode. Persistent pain lower outer quadrant of theLEFT breast. Study done for further evaluation. TECHNIQUE: Craniocaudal and MLO projections of the BILATERAL breastsutilizing digital imaging and computer-aided detection. Also performedwas an ultrasound of the lower outer quadrant of the LEFT breastcorresponding to location of the patient's pain. COMPARISON: Mammograms 07/21/2012 and 07/01/2012. FINDINGS: Mammographically, the breast is composed predominantly of fat.No mammographic evidence for carcinoma is identified BILATERALLY. Noabnormality seen which would explain the patient's reported pain. Ultrasound evaluation of the lower outer quadrant of the LEFT breastdemonstrates no focal fluid collections concerning for abscess. However,there is a subtle 0.5 x 0.5 x 0.6 cm hypoechoic shadowing focus at the3:00 position 3 cm from the nipple. Appearance of the mass isindeterminate although a underlying carcinoma is not excluded on the basisof this exam. Because of this, ultrasound-guided biopsy is recommended.Unfortunately, this could not be performed today as the patient is onCoumadin. Because of this, this will be scheduled to be performed at alater date. IMPRESSION: 1. No mammographic evidence for carcinoma BILATERALLY. No abnormality isseen within the LEFT breast mammographically which would explain thepatient's reported pain. 2. 0.6 x 0.5 x 0.5 cm hypoechoic somewhat ill-defined shadowing mass 3:00position of the LEFT breast 3 cm from the nipple. Carcinoma is ofconcern. Because of this, ultrasound-guided biopsy is recommended.Ultrasound evaluation of the lower outer quadrant of the LEFT breast isotherwise unremarkable. No focal fluid collections are seen concerningfor abscess. ACR 4 Suspicious Abnormality - Biopsy Should Be Considered Félix Morejon M.D. Breast/Diagnostic Radiologist [email or web address] PAT:leticia / us Deborah Linn MD MAMMO Final R esult * HPV THIN PREP (05/17/2011 7:50 AM AIRPLANE ELECTRICAL REPAIRER) SPECIMEN/SOUR CE Cervix [facility] HPV RESULTS High/Interm ediate risk HPV not present. Types tested include: 16,18,31,33 ,35,39,45,5 1,52,56,58, 59,68 Methodology : Digene Hybrid Capture II [facility] 05/17/2011 7:50 AM AIRPLANE ELECTRICAL REPAIRER 05/20/2011 7:50 AM AIRPLANE ELECTRICAL REPAIRER us Maren Mercer MD MICROBIOLOGY Final Result [facility] INTERNAL [id number] [place] [id number] * LIPID PANEL (09/21/2008 7:45 AM CDT) CHOLESTEROL,TOTAL 141 110 - 199 mg/dL [facility] TRIGLYCERIDES 54 40 - 149 mg/dL [facility] HDL CHOLESTEROL 44 >40 mg/dL [facility] CHOL/HDL RATIO 3.21 <4.51 [facility] LDL CHOLESTEROL 86 <131 mg/dL [facility] PATIENT STATUS Fasting [facility] Blood specimen (specimen) BLOOD SPECIMEN / Unknown 09/21/2008 7:45 AM CDT 09/20/2008 10:01 PM CDT us Klarissa Winter NP CHEMISTRY Final Resu lt [facility] INTERNAL ZIP [id number] [place] [id number] from Last 3 Months or Most Recently Relevant to Health Maintenance Insurance [facility] ADVANTAGE [facility] [employer] [place] [employer] Advance Directives * Full Code (Latest Code Status on File) Date Activated Date Inactivated Comments 09/19/2008 8:15 PM 09/21/2008 7:41 PM Care Teams Portal Developer Relationship Specialty Start Date End Date Shaun Barrett MD [id number] [place] [address] PCP - General Family Practice 05/24/24
[2024-05-24 21:07] VITALS: BP 118/83; PULSE 80; RESP 18; TEMP 36.6; O2SAT 95; BMI 41.6
--- NOTE | 2024-05-24 21:10 | ED.CHESTPAIN ---
HPI - Chest Pain General Time Seen by Provider: 21:11 Date Seen: 05/24/24 Chief Complaint: Chest Pain Stated Complaint: chest pain, short of breath Time Seen by Provider: 05/24/24 21:09 Source: patient, RN notes reviewed and old records reviewed Mode of arrival: ambulatory Limitations: no limitations History of Present Illness HPI narrative: 53-year-old female with history of pulmonary embolism currently anticoagulated, hypertension, diabetes, currently on metformin and Mounjaro, presents with chest pain. 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 Also became nauseated. Was seen at outside facility, had a cardiac evaluation which was negative and patient was discharged. She reports ongoing intermittent pain, burning in the left side of the chest, not associated with activity. She notes couple of days ago she has some fishing vomited after that, felt a little bit of discomfort and bloating yesterday. Also notes ?painful hit cups. ? Denies black or tarry stools, blood in the stools. Has had some diarrhea but has had this intermittently for some time. No abdominal pain. A little bit short of breath. No leg swelling. Related Data Home Medications ?Medication ?Instructions ?Recorded ?Confirmed cholecalciferol (vitamin D3) 1,250 1,250 mcg PO QWEEK 10/31/21 04/16/24 mcg (50,000 unit) capsule levonorgestrel (Mirena) 1 device intrauterine ONCE 12/23/22 04/16/24 tirzepatide 12.5 mg/0.5 mL mg subcut 04/16/24 04/16/24 subcutaneous pen injector (Mounjaro) Previous Rx's ?Medication ?Instructions ?Recorded Blood Glucose Meter #1 ea 02/13/22 blood sugar diagnostic (Blood #100 ea 02/13/22 Glucose Test strips) lancets 32 gauge (Easy Touch #100 ea 02/13/22 Lancets) nystatin 100,000 unit/gram topical 1 applic topical TID #60 grams 11/01/22 powder fluconazole 150 mg tablet 150 mg PO Q3D 2 doses #2 tabs 08/29/23 apixaban 5 mg tablet (Eliquis) See Rx Instructions .Route 03/29/24 .COMPLEX #180 tabs metformin 500 mg tablet,extended 1,000 mg (2 x 500 mg) PO QDAY #90 04/16/24 release 24 hr tabs amlodipine 2.5 mg tablet 2.5 mg PO QDAY #14 tabs 05/14/24 metoprolol succinate 25 mg 25 mg PO QDAY #14 tabs 05/14/24 tablet,extended release 24 hr omeprazole 40 mg capsule,delayed 40 mg PO QDAY #14 caps 05/14/24 release valsartan 160 mg tablet 160 mg PO QDAY #14 tabs 05/14/24 sucralfate 1 gram tablet (Carafate) 1 g PO Q6H #20 tabs 05/24/24 Allergies Allergy/AdvReac Type Severity Reaction Status Date / Time hydrocodone Allergy Intermediate Vomiting Verified 05/24/24 21:53 rivaroxaban Allergy Mild Joint Verified 05/24/24 21:53 aches and pain prochlorperazine AdvReac Severe Anger/altered Verified 05/24/24 21:53 mentation hydrochlorothiazide AdvReac Mild Ill feeling Verified 05/24/24 21:53 PFSH [facility] Medical History (Updated 05/24/24 @ 23:18 by Stanley Steiner MD) Yeast dermatitis ?B37.2 - Candidiasis of skin and nail (ICD-10) Palpitations ?R00.2 - Palpitations (ICD-10) History of pulmonary embolism ?Z86.711 - Personal history of pulmonary embolism (ICD-10) History of deep venous thrombosis (DVT) of distal vein of left lower extremity ?Z86.718 - Personal history of other venous thrombosis and embolism (ICD-10) Surgical History (Reviewed 08/15/23 @ 09:56 by Jacki Dias ~ [facility]) H/O left breast biopsy (12/03/16) ?Z98.890 - Other specified postprocedural states (ICD-10) Status post lumbar laminectomy ?Z98.890 - Other specified postprocedural states (ICD-10) History of laser assisted in situ keratomileusis (05/06/12) ?Z98.890 - Other specified postprocedural states (ICD-10) History of dilation and curettage (04/30/06) ?Z98.890 - Other specified postprocedural states (ICD-10) Family History (Updated 08/13/23 @ 11:32 by Jacki Dias ~ [facility]) Father Diabetes High blood pressure Mother Uterine cancer High blood pressure Social History (Updated 08/15/23 @ 09:56 by Jacki Dias ~ [facility], [facility]) Smoking Status: Former smoker What tobacco products do you use: cigarettes Smoking quit date/years: >15 years ago Do you use any of these nicotine containing products: None Second hand tobacco smoke exposure: No How often do you have a drink containing alcohol: monthly or less AUDIT-C Alcohol total score: 1 Non-prescribed substance use: denies use Exam Narrative Exam Narrative: General: Well-developed and well-nourished, no acute distress Head: Atraumatic and normocephalic Eyes: Pupils are equal reactive, extraocular motions intact, conjunctiva clear ENT: External nose and ears are normal, posterior pharynx without erythema or exudate Neck: No midline cervical tenderness, full spontaneous range of motion the neck, trachea midline, no adenopathy Heart: Regular rate and rhythm no murmurs or thrills Lungs: Clear to auscultation bilaterally without wheezes or crackles Abdomen: Soft, nontender, nondistended with active bowel sounds Musculoskeletal: No tenderness, deformity, or edema Neurologic: Awake, alert, and oriented x3, no gross focal neurologic deficits, cranial nerves intact as tested Psych: Mood and affect are appropriate Skin: No rashes Const Vital Signs, click to edit/add: Vital Signs - 24 hr 05/24/24 21:07 Temperature 97.8 F Pulse Rate [Left Pulse Oximeter] 80 Respiratory Rate 18 Blood Pressure [Right Forearm] 118/83 Pulse Oximetry 95 Oxygen Delivery Method Room Air Course Course ED Course: Reviewed emergency department visit from earlier today which was for this same problem, troponin negative x2, normal CBC, normal comprehensive panel. Patient here today with left-sided chest pain which she describes as burning, painful Head cups, nausea and some shortness of breath. On exam, vital is stable and appears comfortable, EKG is reassuring. Discussed plan for protesting emergency department. Troponin will be performed and if this is negative, this will be adequate for rule out as she had to negative troponins earlier. Negative comprehensive panel earlier, will check lipase is this was not previously done. CT scan of the chest will be performed to evaluate for other intrathoracic pathology including esophageal changes, change pericardial effusion, pneumonia. Najmaalox and Pepcid given for symptom management. EKG independently interpreted by me performed at 10:55 p.m. demonstrates normal sinus rhythm rate 68, normal intervals, normal axis, FL 178, QTC 438. No change from prior of January 2022. Reevaluation(s) Time of Reevaluation #1: 22:37 Reevaluation #1: CT PE study and panel interpreted by me with no evidence for acute pulmonary embolism, no hiatal hernia. Lipase is been ordered. Time of Reevaluation #2: 23:15 Reevaluation #2: Patient recheck, discussed findings. Lipase minimally elevated but radiology interpretation CT scan without findings of acute pancreatitis. Symptoms seem most consistent with gastritis or reflux with burning pain in the left chest, painful hiccups which likely are from esophageal spasm, early satiety. Patient to increase omeprazole to twice a day, will be started on care feet as well. Stable for discharge. Vital Signs Vital signs: Initial Vital Signs Temperature 97.8 F 05/24/24 21:07 Temperature Source Temporal Artery Scan 05/24/24 21:07 Pulse Rate 80 05/24/24 21:07 Respiratory Rate 18 05/24/24 21:07 Blood Pressure 118/83 05/24/24 21:07 Blood Pressure Mean 94 05/24/24 21:07 Blood Pressure Position Sitting 05/24/24 21:07 Pulse Oximetry 95 05/24/24 21:07 Oxygen Delivery Method Room Air 05/24/24 21:07 Vital Signs Temperature 97.8 F 05/24/24 21:07 Pulse Rate 80 05/24/24 21:07 Respiratory Rate 18 05/24/24 21:07 Blood Pressure 118/83 05/24/24 21:07 Pulse Oximetry 95 05/24/24 21:07 Oxygen Delivery Method Room Air 05/24/24 21:07 Temperature 97.8 F 05/24/24 21:07 Pulse Rate 80 05/24/24 21:07 Respiratory Rate 18 05/24/24 21:07 Blood Pressure 118/83 05/24/24 21:07 Pulse Oximetry 95 05/24/24 21:07 Oxygen Delivery Method Room Air 05/24/24 21:07 Medications Administered Medications: Discontinued Medications Generic Name Dose Route Start Last Admin Trade Name Freq PRN Reason Stop Dose Admin Famotidine 20 mg 05/24/24 21:46 05/24/24 22:33 Famotidine 10 Mg/Ml Inj IVP 05/24/24 21:47 20 mg ONCE ONE Administration Lidocaine/Aluminum/Magnesium/Simeth 30 ml 05/24/24 21:46 05/24/24 22:52 Mag Hydrox/Aluminum Hyd/Simeth 30 Ml Oral.Susp PO 05/24/24 21:47 30 ml ONCE ONE Administration Ondansetron HCl 4 mg 05/24/24 22:10 05/24/24 22:33 Ondansetron 2 Mg/Ml Inj IVP 05/24/24 22:11 4 mg ONCE ONE Administration MDM - Chest Pain Lab Data Labs: Lab Results 05/24/24 05/24/24 Range/Units 21:55 22:37 Troponin I < 0.01 L (0.01-0.04) ng/mL NT-Pro-B Natriuret Pep 84 pg/mL Lipase 314 H (23-300) U/L Lab Acknowledgement Test Added Discharge Plan Discharge Clinical Impression: Gastritis, Chest pain, non-cardiac Patient Disposition: Home, Self-Care Condition: Stable Instructions: Gastritis (DC), Diet for Stomach Ulcers and Gastritis (ED) Additional Instructions: Increase omeprazole to twice a day for 7 days Activity Level: Activity as Tolerated Discharge Diet: Regular Prescriptions: New sucralfate [Carafate] 1 gram tablet 1 g PO Q6H Qty: 20 0RF No Action (DME) Blood Glucose Meter Misc See Rx Instructions .Route Qty: 1 0RF Rx Instructions: As directed (DME) Blood Glucose Test Strip See Rx Instructions .Route Qty: 100 3RF Rx Instructions: Daily (DME) Easy Touch Lancets 32 gauge misc See Rx Instructions .Route Qty: 100 3RF Rx Instructions: Daily Mirena 21 mcg/24 hours (8 yrs) 52 mg intrauterine device 1 device intrauterine ONCE Rx Instructions: as a single dose Mounjaro 12.5 mg/0.5 mL pen injector subcut cholecalciferol (vitamin D3) 1,250 mcg (50,000 unit) capsule 1,250 mcg PO QWEEK nystatin 100,000 unit/gram powder 1 applic topical TID Qty: 60 1RF fluconazole 150 mg tablet 150 mg PO Q3D Qty: 2 0RF Rx Instructions: may repeat second dose 72 hrs after first dose if symptoms persist Eliquis 5 mg tablet See Rx Instructions .ROUTE .COMPLEX Qty: 180 3RF Dose Instruction: TAKE 1 TABLET TWICE A DAY Rx Instructions: TAKE 1 TABLET TWICE A DAY metformin 500 mg tablet extended release 24 hr 1,000 mg PO QDAY Qty: 90 0RF amlodipine 2.5 mg tablet 2.5 mg PO QDAY Qty: 14 0RF valsartan 160 mg tablet 160 mg PO QDAY Qty: 14 0RF metoprolol succinate 25 mg tablet extended release 24 hr 25 mg PO QDAY Qty: 14 0RF omeprazole 40 mg capsule,delayed release(DR/EC) 40 mg PO QDAY Qty: 14 0RF Follow Up/Referrals: Shaun Barrett MD [Primary Care Provider] - Stand Alone Forms: [employer] Info Instructions
--- OUTSIDE RECORDS SUMMARY | 2024-05-24 21:56 | XMS_ITS | Clinical Summary ---
Author Organization [facility] Address [place], [place] [address] Care Team Providers Care Pizzamaker Name Role Phone Shaun Barrett MD Primary Care Provider [phone] Allergies Active Allergy Reactions Criticality Noted Date [...] obesity 09/19/2008 Overview (09/19/2008): BMI 40.41 09/20 intermediate (current) use of anticoagulants 2007 Congenital insufficiency of aortic valve 007 Overview (05/05/2007): Bicuspid Aortic Valve Recheck Echo 04/2008 Other pulmonary embolism and infarction 03/16/20 07 Lumbago 03/13/2007 Dysthymic disorder 03/10/2007 Overview (03/10/2007): Depression Encounters Date Type Department Care Team Description 05/24/2024 8:26 AM [facility] - 05/24/2024 11:42 AM [facility] Emergency [facility] [address] [place], [place] [id number] Jay Zamora MD Lightheaded (Primary Dx); Chest pain, unspecified type; Hypertension; Current use of mcfp anticoagulation; IUD (intrauterine device) in place Discharge [...] on file Legal 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 Gender Identity Not on file Sexual Orientation Not on file Occupation Industry Job Start Date Job End Date Not on file Not on file Not on file Not on file Obstetrics History Last Filed Vital Signs Vital Sign Reading Time Taken Comments Blood Pressure 109/70 05/24/2024 11:34 AM SERVICE BAR CASHIER Pulse 83 05/24/2024 11:34 AM SERVICE BAR CASHIER Temperature 36.2 C (97.2 F) 05/24/2024 9:29 AM SERVICE BAR CASHIER Respiratory Rate 15 05/24/2024 8:23 AM SERVICE BAR CASHIER Oxygen Saturation 100% 05/24/2024 11: 34 AM SERVICE BAR CASHIER Inhaled Oxygen Concentration - - Weight 136.6 kg (301 lb 3.2 oz) 05/24/2024 9:39 AM SERVICE BAR CASHIER Height 180.3 cm (5' 11) 05/24/2024 9:39 AM SERVICE BAR CASHIER Body Mass Index 42.01 05/24/2024 9:39 AM SERVICE BAR CASHIER Plan of Treatment Health Maintenance Due Date [...] Comments TROPONIN I Timed 05/24/2024 10:40 AM SERVICE BAR CASHIER EKG 12 LEAD Timed 05/24/2024 9:49 AM SERVICE BAR CASHIER XR CHEST 1 VIEW PORTABLE STAT 05/24/2024 9:18 AM SERVICE BAR CASHIER CBC WITH AUTO DIFFERENTIAL STAT 05/24/2024 8:45 AM SERVICE BAR CASHIER TROPONIN I STAT 05/24/2024 8:45 AM SERVICE BAR CASHIER COMP METABOLIC PANEL STAT 05/24/2024 8:45 AM SERVICE BAR CASHIER CBC WITH AUTO DIFFERENTIAL STAT 05/24/2024 8:45 AM SERVICE BAR CASHIER EKG 12 LEAD STAT 05/24/2024 8:25 AM SERVICE BAR CASHIER XR MAMMO BILAT DIAG FFDM (IA) Routine 06/15/2013 2:28 PM SERVICE BAR CASHIER Breast mass HPV HIGH RISK Timed 05/17/2011 7:50 AM SERVICE BAR CASHIER LIPID PANEL Early AM 09/21/2008 7:45 AM CDT from Last 3 Months or Most Recently Relevant to Health Maintenance Results * TROPONIN I (05/24/2024 10:40 AM SERVICE BAR CASHIER) Only the most recent of2 resultswithin the time period is included. TROPONIN I ANTELMO <0.020 0.000 - 0.034 ng/mL 05/24/2024 11:14 AM SERVICE BAR CASHIER [facility] Blood BLOOD SPECIMEN / Unknown Venipuncture / Unknown 05/24/2024 10:40 AM SERVICE BAR CASHIER 05/24/2024 10:46 AM SERVICE BAR CASHIER us Jay Zamora MD CHEMISTRY Final Result [facility] [address] [place] [address], * XR CHEST 1 VIEW PORTABLE (05/24/2024 9:18 AM SERVICE BAR CASHIER) Anatomical Region Laterality Modality HEART, THORAX, CHEST Digital Rad iography 05/24/2024 9:29 AM SERVICE BAR CASHIER Impressions 05/24/2024 9:29 AM SERVICE BAR CASHIER No evidence of acute cardiopulmonary disease. Dictated by Bro Robb MD @ 05/24/2024 9:29:04 AM (Electronically Signed) Narrative 05/24/2024 9:29 AM SERVICE BAR CASHIER For Patients: As a result of the [...] CBC WITH AUTO DIFFERENTIAL (05/24/2024 8:45 AM SERVICE BAR CASHIER) WHITE BLOOD COUNT 7.9 4.5 - 11.0 thou/cu mm 05/24/2024 8:53 AM SERVICE BAR CASHIER [facility] RED BLOOD COUNT 5.82(H) 3.90 - 5.20 mil/cu mm 05/24/2024 8:53 AM [facility] HEMOGLOBIN 14.2 11.9 - 15.6 g/dL 05/24/2024 8:53 AM [facility] HEMATOCRIT 44.9 33.0 - 51.0 % 05/24/2024 8:53 AM [facility] MCV 77(L) 80 - 100 fL 05/24/2024 8:53 AM [facility] MCH 24.4(L) 26.0 - 34.0 pg 05/24/2024 8:53 AM [facility] MCHC 31.6(L) 32.0 - 36.0 g/dL 05/24/2024 8:53 AM [facility] RDW 14.4 11.5 - 15.5 % 05/24/2024 8:53 AM [facility] PLATELET COUNT 323 140 - 440 thou/cu mm 05/24/2024 8:53 AM [facility] MPV 10.2 6.5 - 11.0 fL 05/24/2024 8:53 AM [facility] % NEUT 63.4 42.0 - 72.0 % 05/24/2024 8:53 AM [facility] % LYMPH 28.4 20.0 - 44.0 % 05/24/2024 8:53 AM [facility] % MONO 5.5 <=12.0 % 05/24/2024 8:53 AM [facility] % EOS 1.9 <=8.0 % 05/24/2024 8:53 AM [facility] % BASO 0.5 <=3.0 % 05/24/2024 8:53 AM [facility] ABSOLUTE NEUTROPHILS 5.0 1.7 - 7.0 thou/cu mm 05/24/2024 8:53 AM [facility] ABSOLUTE LYMPHOCYTES 2.2 0.9 - 2.9 thou/cu mm 05/24/2024 8:53 AM [facility] ABSOLUTE MONOCYTES 0.4 <=0.9 thou/cu mm 05/24/2024 8:53 AM [facility] ABSOLUTE EOSINOPHILS 0.2 <=0.5 thou/cu mm 05/24/2024 8:53 AM [facility] ABSOLUTE BASOPHILS 0.0 <=0.3 thou/cu mm 05/24/2024 8:53 AM [facility] Blood BLOOD SPECIMEN / Unknown IV Start / Unknown 05/24/2024 8:45 AM SERVICE BAR CASHIER 05/24/2024 8:50 AM SERVICE BAR CASHIER us Jay Zamora MD HEMATOLOGY Final Result [facility] [address] [place] [address], [place] [phone] * (ABNORMAL) COMP METABOLIC PANEL (05/24/2024 8:45 AM SERVICE BAR CASHIER) SODIUM 138 137 - 145 mmol/L 05/24/2024 9:16 AM [facility] POTASSIUM 4.0 3.5 - 5.1 mmol/L 05/24/2024 9:16 AM [facility] CHLORIDE 108(H) 98 - 107 mmol/L 05/24/2024 9:16 AM [facility] CO2,TOTAL 22 22 - 30 mmol/L 05/24/2024 9:16 AM [facility] GLUCOSE 95 65 - 100 mg/dL 05/24/2024 9:16 AM [facility] CALCIUM 9.5 8.4 - 10.2 mg/dL 05/24/2024 9:16 AM [facility] BUN 16 7 - 17 mg/dL 05/24/2024 9:16 AM [facility] CREATININE 0.90 0.52 - 1.04 mg/dL 05/24/2024 9:16 AM [facility] eGFR 77(L) >90 mL/min/1.7 3m2 05/24/2024 9:16 AM [facility] Comment:As of 2021, eG FR is calculated by the CKD-EPI creatinine equation without race adjustment. eGFR can be influenced by muscle mass, exercise, and diet. The reported eGFR is an estimation only and is only applicable if the renal function is stable. PROTEIN,TOTAL 7.6 6.3 - 8.2 g/dL 05/24/2024 9:16 AM [facility] BILIRUBIN,TOTAL 0.7 0.2 - 1.3 mg/dL 05/24/2024 9:16 AM [facility] ALK PHOSPHATASE ANTELMO 83 38 - 126 IU/L 05/24/2024 9:16 AM [facility] ALT (SGPT) ANTELMO 16 <35 IU/L 05/24/2024 9:16 AM [facility] AST (SGOT) ANTELMO 19 14 - 36 IU/L 05/24/2024 9:16 AM [facility] ALBUMIN 4.4 3.6 - 5.0 g/dL 05/24/2024 9:16 AM [facility] GLOBULIN 3.2 2.1 - 4.1 g/dL 05/24/2024 9:16 AM [facility] A/G RATIO 1.4 0.8 - 2.0 05/24/2024 9:16 AM [facility] ANION GAP 8 5 - 18 05/24/2024 9:16 AM [facility] BUN/CREAT RATIO 18 10 - 20 9:16 AM [facility] Blood BLOOD SPECIMEN / Unknown IV Start / Unknown 05/24/2024 8:45 AM SERVICE BAR CASHIER 05/24/2024 8:50 AM SERVICE BAR CASHIER us Jay Zamora MD CHEMISTRY Final Result [facility] [address] [place] [address], [place] [phone] * XR MAMMO BILAT DIAG FFDM (06/15/2013 2:28 PM SERVICE BAR CASHIER) Anatomical Region Laterality Modality BREASTS, Breast Left, Breast Right Bilateral Mammography Impressions 06/16/2013 3:35 PM SERVICE BAR CASHIER 1. No mammographic evidence for carcinoma BILATERALLY. [...] Be Considered Félix Morejon M.D. Breast/Diagnostic Radiologist [email or web address] PAT:leticia / Narrative 06/16/2013 3:35 PM SERVICE BAR CASHIER BILATERAL DIAGNOSTIC MAMMOGRAM LEFT BREAST ULTRASOUND CLINICAL [...] * HPV THIN PREP (05/17/2011 7:50 AM SERVICE BAR CASHIER) SPECIMEN/SOUR CE Cervix [facility] HPV RESULTS High/Interm ediate risk HPV not present. Types tested include: 16,18,31,33 ,35,39,45,5 1,52,56,58, 59,68 Methodology : Digene Hybrid Capture II [facility] 05/17/2011 7:50 AM SERVICE BAR CASHIER 05/20/2011 7:50 AM SERVICE BAR CASHIER us Maren Mercer MD MICROBIOLOGY Final Result [facility] INTERNAL ZIP [id number] [place] [id number] * LIPID PANEL (09/21/2008 7:45 AM CDT) CHOLESTEROL,TOTAL 141 110 - 199 mg/dL [facility] TRIGLYCERIDES 54 40 - 149 mg/dL [facility] HDL CHOLESTEROL 44 >40 mg/dL [facility] CHOL/HDL RATIO 3.21 <4.51 [facility] LDL CHOLESTEROL 86 <131 mg/dL [facility] PATIENT STATUS Fasting [facility] Blood specimen (specimen) BLOOD SPECIMEN / Unknown 09/21/2008 7:45 AM CDT 09/20/2008 10:01 PM CDT us Klarissa Winter NP CHEMISTRY Final Resu lt [facility] INTERNAL ZIP [id number] [place] [id number] from Last 3 Months or Most Recently Relevant to Health Maintenance Insurance [facility] ADVANTAGE [facility] [employer] [place] [employer] Advance Directives * Full Code (Latest Code Status on File) Date Activated Date Inactivated Comments 09/19/2008 8:15 PM 09/21/2008 7:41 PM Care Teams Pizzamaker Relationship Specialty Start Date End Date Shaun Barrett MD [address] [place] [address] PCP - General Family Practice 05/24/24
--- OUTSIDE RECORDS SUMMARY | 2024-05-24 21:56 | XMS_ITS | Clinical Summary ---
Author Organization [facility] Address [address] [place] [id number] Care Team Providers Care Outreach Consultant Name Role Phone Unavailable Primary Care Provider Unavailabl e Source Comments Patient records contain information from all sites at [facility]. For routine questions regarding patient records, call [phone] during business hours, M-F 8:00 AM - 5:00 PM Central Time. Record requests for emergency care only can be directed to [phone] at any time.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
[2024-05-24] MEDS: FAMOTIDINE 10 MG/ML inj 20 MG IVP (22:33)
[2024-05-24] MEDS: ONDANSETRON 2 MG/ML inj 4 MG IVP (22:33)
[2024-05-24 22:44] LABS: NT Pro B Type NatriureticPept* 84 pg/mL
[2024-05-24] MEDS: MAG HYDROX/ALUMINUM HYD/SIMETH 30 ML ORAL.SUSP PO (22:52)
[2024-05-24 22:53] LABS: Lipase* 314 U/L (23-300)
[2024-05-24 23:02] LABS: Troponin I* < 0.01 ng/mL (0.01-0.04)
== END 2024-05-24 23:39 | disposition home or self-care (01) ==
PROVIDERS: Emergency Provider Family Medicine; PCP Family Medicine
DX: K29.70 Gastritis, unspecified, without bleeding (principal); R07.89 Other chest pain
CPT/HCPCS: 36415; 71275; 83690; 83880; 84484; 93005; 96374; 96375; 99284; 99285; A9270; J2405; Q9967; S0028

== ENCOUNTER 2024-05-28 11:06 | Outpatient (REF) | payer BC, OTHER, SELFPAY ==
[2024-05-28 11:40] LABS: Lipase* 147 U/L (23-300)
== END 2024-05-28 11:07 | disposition home or self-care (01) ==
LOC: NPINS 11:06
PROVIDERS: PCP Family Medicine; Visit Provider Family Medicine
DX: K85.90 Acute pancreatitis without necrosis or infection, unspecified (principal)
CPT/HCPCS: 83690

== ENCOUNTER 2024-06-11 14:28 | Outpatient (CLI) | payer BC, OTHER, SELFPAY ==
[2024-06-14 11:36] LABS: HPV Source Cervix; HPV, High Risk by TMA Not Detected
== END 2024-06-11 14:29 | disposition home or self-care (01) ==
PROVIDERS: PCP Family Medicine; Visit Provider Obstetrics & Gynecology
DX: Z12.4 Encounter for screening for malignant neoplasm of cervix (principal); Z11.51 Encounter for screening for human papillomavirus (HPV)
CPT/HCPCS: 87624; 87625; 88141; 88142

== ENCOUNTER 2024-10-29 10:19 | Outpatient (CLI) | payer BC, OTHER, SELFPAY ==
--- NOTE | 2024-10-29 10:45 | CRLHL7_ITS ---
For Patients: As a result of the Century Cures Act, medical imaging exams and procedure reports are released immediately into your electronic medical record. You may view this report before your referring provider. If you have questions, please contact your health care provider. INDICATION: Frequent and prolonged menses COMPARISON: CT 11/24/2022 TECHNIQUE: 2D howard-scale and color Doppler images were acquired of the pelvis using a transabdominal and transvaginal approach. Transvaginal imaging performed to better visualize the endometrial stripe and ovaries. FINDINGS: Sonographic images demonstrate a normal size and smooth outer contour of the uterus. Uterus measures 6.6 cm in length by 4.0 cm in AP diameter by 4.3 cm in transverse dimension. There is a heterogeneous vascular structure adjacent to the endometrium on the right which measures 10 x 8 x 9 millimeters. IUD is present in good position within the endometrial canal. The right ovary measures 2.4 x 1.5 x 1.2 cm in size and the left ovary is not visualized due to overlying bowel gas. The right ovary demonstrates normal arterial and venous blood flow on color Doppler analysis. There are no suspicious fluid collections within the cul-de-sac. IMPRESSION: Heterogeneous vascular structure adjacent to the right side of the endometrium measuring 1 cm, this may represent an endometrial polyp. IUD is in good position within the endometrial canal. Dictated by Adam Cummings MD @ 10/29/2024 12:27:34 PM (Electronically Signed)
== END 2024-10-29 10:20 | disposition home or self-care (01) ==
LOC: US 10:19
PROVIDERS: PCP Family Medicine; Visit Provider Physician Assistant
DX: N93.8 Other specified abnormal uterine and vaginal bleeding (principal)
CPT/HCPCS: 76830; 76856